=== PATIENT | female | born 1970 | race Caucasian/White ===

== ENCOUNTER 2016-11-07 13:16 | Emergency (ER) | payer BC, MEDICARE ==
[2016-11-07] MEDS ORDERED: NS 0.9% 1000 ML* 1,000 ML IV ONE (13:31)
[2016-11-07] MEDS ORDERED: fentaNYL* 50 MCG/ML 2 ML VIAL (100 MCG VIAL) IV SLOW PU ONE ×2 (13:37→16:52)
[2016-11-07 14:09] LABS: Hematocrit 39 % (35-47); Hemoglobin 12.9 g/dl (12.0-16.0); Mean Corpuscular HGB Conc 33 g/dl (31-36); Mean Corpuscular Hemoglobin 30 pg (27-31); Mean Corpuscular Volume 91 fL (80-97); Mean Platelet Volume 8 um3 (7.4-10.4); Red Blood Count 4.26 10^6/ul (4.0-5.4); Red Cell Distribution Width 14 % (10.5-15); White Blood Count 8.1 10^3/ul (3.5-10.8)
[2016-11-07 14:26] LABS: Albumin 4.4 g/dL (3.2-5.2); C Reactive Protein 2.11 mg/L (< 5.00); Calcium 9.2 mg/dL (8.6-10.3); EGFR African American 98.5 (>60); EGFR Non-African American 76.6 (>60); Globulin 3.4 g/dL (2-4); Magnesium 1.6 mg/dL (1.9-2.7); Potassium 3.7 mmol/L (3.5-5.0); Total Bilirubin 0.3 mg/dL (0.2-1.0); Total Protein 7.8 g/dL (6.4-8.9)
[2016-11-07] MEDS ORDERED: diPHENhydraMINE IV* 25 MG in NS 0.9% 50 ML* 50 ML IVPB ONE (14:27)
[2016-11-07] MEDS ORDERED: Ondansetron INJ* 2 MG/ML VIAL IV ONE (14:27)
[2016-11-07] MEDS ORDERED: diPHENhydraMINE IV* 50 MG/ML 1 ml VIAL (BENADRYL) IV ONE (14:29)
[2016-11-07 14:52] LABS: Urine Bilirubin Negative (Negative); Urine Glucose Negative (Negative); Urine Nitrite Negative (Negative)
[2016-11-07] MEDS ORDERED: Iohexol 300* (CONTRAST) 10 ML SDV IV ONE (15:39)
--- NOTE | 2016-11-07 17:02 | RAD ---
CLINICAL HISTORY: Lower left flank pain with radiation anteriorly. Relevant surgical history includes history of renal stones, nonalcoholic pancreatitis, treatment for urinary tract infection, hysterectomy, laparoscopic cholecystectomy and appendectomy. COMPARISON: Most recent comparison CT examination is dated October 25, 2015 TECHNIQUE: Contrast enhanced CT examination of the abdomen and pelvis from the lung bases through the initial tuberosities. The patient received 79 mL Omnipaque 300 intravenously prior to imaging.The patient received oral contrast as well prior to imaging. FINDINGS: VISUALIZED LUNG BASES: Bilateral breast prostheses are partially visualized. The visualized lung bases are grossly clear. There is no pleural effusion. ABDOMEN AND PELVIS: In the right lobe of the liver there is a 3.3 cm low density that exhibits peripheral enhancement characteristic of hemangioma. The liver is otherwise homogenous in attenuation. The spleen, pancreas and adrenal glands are grossly normal in appearance. The gallbladder is surgically absent. There is mild fullness of the left renal collecting system and borderline mild hydronephrosis in the right renal collecting system. There are no definite renal calculi or masses that account for this appearance. The urinary bladder measures 9.9 x 10.6 cm in the axial plane and 11.9 cm in the cephalocaudal projection. This yields an approximate urinary bladder volume of just over 1 L. The oral contrast has progressed as far as the descending colon. The small and large bowel are not distended. The appendix is not discreetly visualized consistent with the patient's surgical history. There is no gross retroperitoneal or mesenteric lymphadenopathy. The uterus is surgically absent. At the superior portion of the vagina, particularly the right fornix (axial image 77 and 99) there is a hypoattenuating area that may represent air or be some sort of foreign body. The abdominal aorta and iliac arteries are normal in course and diameter. Degenerative changes include multilevel loss of intervertebral disc height involving the lower thoracic and lumbar spine.There are no sinister bone lesions. IMPRESSION: 1. The urine filled bladder is distended measuring an approximate volume of just over 1 L and there is mild bilateral fullness of the renal collecting systems bordering on mild hydronephrosis. No obstructing calculi or other mass are visualized. Please correlate to signs and symptoms of neurogenic bladder and/or urethra outlet obstruction. 2. There is questionable identification of a foreign body in the vagina that could represent a contraceptive device such as Nuvaring. Alternatively this is simply a focus of air and is of no clinical concern. 3. Additional chronic, degenerative and iatrogenic findings described in the body of the report.
[2016-11-07] MEDS ORDERED: Magnesium Oxide TAB* 400 MG PO ONE (18:57)
[2016-11-07] MEDS ORDERED: oxyCODONE/Acetamin 5/325 MG* TAB PO ONE (19:14)
[2016-11-07] MEDS ORDERED: Ondansetron ODT TAB* 4 MG SL ONE (19:25)
--- NOTE | 2016-11-07 19:36 | ED ---
Progress - Progress Note Progress Note: Pt here w/ LUQ pain which she reports is "100% same as her pancreatitis sx". She has nausea. Her CT scan reveals a possible FB in vagina so a pelvic exam was performed. She denies abnormal vaginal d/c, odor or irritation. She is sexually active and has no concern for STD. She is s/p HEAVEN. BS+. Ab appears to be non-distended. Pelvic exam performed. Vulva is normal w/o lesions, erythema or d/c. Speculum exam is non-painful - white mucousy d/c observed - no foul odor. No erythema, no lesions, no blood nor FB observed. No cervix observed. Speculum removed and bimanual exam performed - no palpable masses, FB's, including cervix, uterus or ovaries - NTTP. There is a cavity/space palpated that is non-painful and again w/o FB. Pt tolerated procedure well. Course/Dx - Diagnoses Provider Diagnoses: Abdominal pain
--- NOTE | 2016-11-08 01:14 | CONS ---
CONSULTATION REPORT: DATE OF CONSULT: 11/07/16 REQUESTING PHYSICIAN FOR CONSULT: Dr. Penny. ATTENDING PHYSICIAN WHILE IN THE HOSPITAL: Dr. Joana Cota (report being dictated by Valentin Workman NP). REASON FOR MEDICAL CONSULTATION: Evaluation for admission. HISTORY OF PRESENT ILLNESS: Ms. Nina is a 46-year-old female patient who according to her, she has a history of fibromyalgia and in addition to this, has a history of depression, anxiety, history of narcotic usage in the past, history of chronic pancreatitis, migraines and fibromyalgia. She comes into the ER today stating that she recently was diagnosed with a UTI. She was treated. She saw Dr. Galvan in followup for this UTI. She was complaining of having abdominal discomfort there and Dr. Galvan, according to the patient, the was sent to her primary for followup of the pain. She tried getting with the primary. They were unable to get her in today. She states she has been having pain over the last day and a half in the left upper quadrant that has been sharp stabbing, worsening with food. She said she has has episodes in the past like this but she says she has not had any for sometime that she can recall. She has not had any fevers or chills. She says she feels nauseous, but she says she has not vomited. She says that she had a bowel movement this morning that was of normal caliber. There was no diarrhea. She denied having any fevers or chills. She came into the ER today. She underwent a CAT scan. I was concerned because the discomfort was not going away and we were asked to evaluate for admission. PAST MEDICAL HISTORY: Significant for: 1. Depression. 2. Anxiety. 3. Narcotic abuse in the past. 4. Chronic pancreatitis. 5. Fibromyalgia. 6. Migraines. PAST SURGICAL HISTORY: 1. She has had 3 C-sections. 2. Hysterectomy. 3. Breast surgery. HOME MEDICATIONS: According to the patient recall include: 1. Zoloft 200 mg daily. 2. Estradiol 0.1 mg daily. 3. Neurontin 600 mg p.o. t.i.d. 4. Ritalin 20 mg p.o. b.i.d. as needed. 5. Trazodone 200 mg daily. 6. Ativan 2 mg t.i.d. as needed. ALLERGIES TO MEDICATIONS: Include COMPAZINE, MORPHINE, TRIPTAN, and TORADOL. FAMILY HISTORY: Mother had a history of breast cancer. Father had a history of MD and colon cancer. SOCIAL HISTORY: She does not smoke. She does not drink. Surrogate decision maker is her ex- and boyfriend. REVIEW OF SYSTEMS: There is no documented fever. She denied having any significant weight change. There was no double vision. There is no ear discharge. She denies having any rhinorrhea. There is no sore throat. No thyroid enlargement. Denied having any chest pain. There was no orthopnea, no nocturnal dyspnea. There is abdominal pain from my HPI. There was no nausea, no vomiting. No dysuria, no frequency. No seizure, no loss of consciousness. No pruritus, no skin ulceration. Review of 14 systems completed and all others negative. PHYSICAL EXAM: Vital signs: Blood pressure 112/79, pulse 73, respirations 21, O2 sat 100%, temperature 98.7. General: At this time, Ms. Nina is a 46-year- old female patient. She is sitting in the ER stretcher. She does not appear to be in any acute distress. HEENT: Head is atraumatic, normocephalic. Eyes: EOMs are intact. Sclerae anicteric and not pale. Neck: Supple. Throat: Oral mucosa appears to be moist. No oropharyngeal erythema. Lungs are clear to auscultation bilaterally. No wheezes, rales or rhonchi. Abdomen was soft, it was flat. She does illicit tenderness in the left upper quadrant. She says it hurts when you touch there. There is no guarding or rebound tenderness. Extremities: Pulses are 2+ throughout. She is able to move all 4 extremities with 5/5 strength. Neurologically, the patient is awake, alert, oriented x3. Tongue midline. Alignment Mechanic were equal. No gross focal deficits. Skin is grossly intact. DIAGNOSTIC STUDIES/LAB DATA: The labs today revealed WBC of 8.1, RBC of 4.26, hemoglobin of 12.9, hematocrit of 39, platelet count of 316. PTT was 25.6. Sodium was 133, potassium 3.7, chloride 97, bicarb 25, BUN 24, creatinine 0.80, glucose 85, lactic 1, calcium 9.2, mag 1.6. Total bili 0.30. AST 18, ALT 10, alk phos 42, ammonia 45, albumin 4.4, lipase 60, amylase 63. Urine was negative. He had an abdominal pelvis CT, which showed bladder is filled and distended measuring an approximate volume of just over 1 liter and there is mild bilateral fullness and renal collecting system is bordering on mild hydronephrosis. No obstructing calculi or mass visualized. Please correlate with signs and symptoms of neurogenic bladder and/or urethral obstruction. Of note, she did urinate down here in the ER. They bladder scanned her and her bladder scan was less than 400. For impression, there is questionable identification of foreign body in the vagina that could represent a contraception device it could be simple focus of air. There is no clinical concern. The patient did undergo a vaginal pelvic exam which no foreign body was identified. Additional chronic and degenerative and androgenic findings described in the body of the report. She had an EKG, which showed normal sinus rhythm at 65. No ST elevation or T-wave inversions. Old medical records reviewed. I did review the records from . I did review the records from [facility]. ASSESSMENT AND PLAN: Ms. Nina is a 46-year-old female patient coming into the ER today with complaints of abdominal pain of unclear etiology. At this point, it appears that she does not have any obvious reason for admission. White count is stable. She has no fevers. She is not vomiting here. I have instructed to try to push p.o. fluids and my plan here is to do a p.o. challenge issue. If she fails, then obviously I think she needs to be admitted for intractable nausea and vomiting. She underwent an MRI within the year. The pancreas was unremarkable at that point. There is a question of this chronic pancreatitis. I feel that if she can take p.o. fluids, keep them down she could be safely discharged with a close followup with Dr. Ziegler. Dr. Penny did call the on-call for Dr. Ziegler's office who felt that this was also an advisable plan. However, we were asked to evaluate as well. The patient at this point says that she still has some pain. She is reluctant to try the p.o. meds. I reassured her that if she does vomit then, obviously I will keep her and will hydrate her. I would recommend trying p.o. medications. I would recommend close followup with Dr. Ziegler. I did discuss this with my attending , Dr. Cota, who was in agreement and I would continue her home medications as prescribed and send her home on a small course of p.o. narcotics to follow up with Dr. Alarcon in [place]. TIME SPENT: Time spent on the consult was approximately 60 minutes, greater than half time spent [id number] with the patient obtaining my history and physical, the other half of the time spent going over the plan of care with the patient and implementing the plan of care. I did discuss the plan of care with ay attending Dr. Cota; she is in agreement. VALENTIN WORKMAN NP [id number]/CPS #: [id number] MTDD
[2016-11-08 01:36] VITALS: BP 110/78
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
== END 2016-11-07 22:00 | disposition home or self-care (01) ==
LOC: ED 13:16
DX: R10.12 Left upper quadrant pain (principal); M79.7 Fibromyalgia; K85.90 Acute pancreatitis without necrosis or infection, unspecified; F32.9 Major depressive disorder, single episode, unspecified; F41.9 Anxiety disorder, unspecified
CPT/HCPCS: 36415; 74177; 80053; 81003; 82140; 82150; 83605; 83690; 83735; 85025; 85730; 86140; 93005; 99282; A9270-GY; J1200; J2405; J3010; Q9967

== ENCOUNTER 2017-08-09 15:28 | Emergency (ER) | payer BC ==
[2017-08-09] MEDS ORDERED: NS 0.9% 1000 ML* 1,000 ML IV ONE (15:36)
--- NOTE | 2017-08-09 16:19 | RAD ---
INDICATION: Left-sided abdominal pain. Request for evaluation COMPARISON: CT April 14, 2017 TECHNIQUE: Limited transabdominal imaging of the left upper quadrant was performed to evaluate the spleen and left kidney FINDINGS: The left kidney is normal in size and echogenicity measuring 10.5 x 5.5 x 4.8 cm. No hydronephrosis, masses, or calculi are seen. The spleen measures 9.7 x 3.1 x 2.9 cm. There is no focal mass. There is no free fluid in the left upper quadrant IMPRESSION: NORMAL LEFT KIDNEY AND SPLEEN
[2017-08-09 16:27] LABS: Urine Appearance Clear; Urine Blood 3+ (Negative); Urine Color Yellow; Urine Ketones Negative (Negative); Urine Protein Negative (Negative); Urine Urobilinogen Negative (Negative)
[2017-08-09 17:06] LABS: ABS Basophils 0.1 10^3/ul (0-0.2); ABS Eosinophils 0.2 10^3/ul (0-0.6); ABS Lymphocytes 1.5 10^3/ul (1.0-4.8); ABS Monocytes 0.5 10^3/ul (0-0.8); ABS Neutrophils 4.9 10^3/ul (1.5-7.7); ABS Nucleated RBC 0 10^3/ul; Eosinophil % 3.2 % (0-6); Hematocrit 39 % (35-47); Hemoglobin 13.1 g/dl (12.0-16.0); Lymphocyte % 21.4 % (25-47); Mean Corpuscular HGB Conc 34 g/dl (31-36); Mean Corpuscular Hemoglobin 31 pg (27-31); Mean Corpuscular Volume 91 fL (80-97); Mean Platelet Volume 7 um3 (7.4-10.4); Nucleated Red Blood Cells % 0; Platelet Count 264 10^3/ul (150-450); Red Blood Count 4.28 10^6/ul (4.0-5.4); Red Cell Distribution Width 13 % (10.5-15); White Blood Count 7.1 10^3/ul (3.5-10.8)
[2017-08-09] MEDS ORDERED: Ondansetron INJ* 2 MG/ML VIAL ONE (17:08)
[2017-08-09] MEDS ORDERED: Ondansetron INJ* 2 MG/ML VIAL IV ONE (17:09)
[2017-08-09 17:17] LABS: EGFR Non-African American 64.1 (>60)
[2017-08-09] MEDS ORDERED: Meperidine SYRINGE* 50 MG/ML IV ONE (17:25)
[2017-08-09] MEDS ORDERED: diPHENhydraMINE IV* 50 MG/ML 1 ml VIAL (BENADRYL) IV ONE (17:26)
--- NOTE | 2017-08-09 17:51 | RAD ---
INDICATION: Left flank pain COMPARISON: None TECHNIQUE: A single view of the abdomen is submitted. FINDINGS: Bones: There are no acute bony findings. Soft tissues: The soft tissues appear normal. The psoas margins are sharp. Bowel gas pattern: Normal there is moderate retained stool, her. Calcifications: There are no abnormal calcifications. Other: None IMPRESSION: MODERATE RETAINED STOOL. NO ABNORMAL CALCIFICATIONS.
[2017-08-09] MEDS ORDERED: oxyCODONE/Acetamin 5/325 MG* TAB PO ONE (18:45)
[2017-08-09] MEDS ORDERED: HYDROcodone/ACETAMIN 5-325 MG* 1 TAB PO ONE (19:32)
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
[2017-08-09 20:21] VITALS: BP 91/64
--- NOTE | 2017-08-12 09:18 | ED ---
Progress - Progress Note Progress Note: Patient presented to ED 3 days ago with abdominal pain and left-sided pain. She was assessed for bowel obstruction as well as a kidney stone. Although her ultrasound does not reveal hydronephrosis, her U/A revealed hematuria and patient is not on her period (hasn't had one in years). She reports she's tried 2 fleets enema and taking milk of magnesium at home- has scant runny brown liquid stool only as a result. Still has abdominal discomfort with dyspepsia and has not had a quality bowel movement since leaving the ED. She is still able to eat and drink however it can be uncomfortable at times. She has a follow-up with her PCP next week. No daniel fever or chills however she just doesn't feel well in general. Denies dysuria, urinary frequency, flank pain. Based on these findings suspect patient either passed a kidney stone or may have a UTI secondary to her constipation. Preliminary urinary results reveal Staphylococcus Legdenensis.Will start antibiotic once final sensitivities returned. Patient aware to return to emergency department if symptoms worsen. Re-Evaluation - Re-Evaluation First Eval Re-Evaluation Time: 19:25 - Still with pain. Requests more pain med. Change: Unchanged Second Eval Re-Evaluation Time: 20:00 - vicodin helped the pain. Pt is agreeable to discharge. Ambulatory without assistance at [place]. Change: Improved Course/Dx - Course Course Of Treatment: ED physician discussed US results with the pt. INITIALLY SENT RX FOR PERCOCET 1 PO Q 6 #12 TO [facility]. AT 1934PM [facility] WAS CLOSED. PT DOES NOT WANT THE PERCOCET BECAUSE IT GIVES HER NIGHTMARES. I CALLED THE [facility] AND LEFT A MESSAGE TO CANCEL THE PERCOCET. VICODIN WAS RX'D - Diagnoses Provider Diagnoses: Flank pain
== END 2017-08-09 20:23 | disposition home or self-care (01) ==
LOC: ED 15:28
DX: R10.32 Left lower quadrant pain (principal); R10.13 Epigastric pain; Z87.442 Personal history of urinary calculi; Z87.891 Personal history of nicotine dependence; Z88.5 Allergy status to narcotic agent; Z88.8 Allergy status to other drugs, medicaments and biological substances
CPT/HCPCS: 36415; 74018; 76705; 80053; 81003; 81015; 82150; 83605; 83690; 85025; 86140; 87077; 87086; 87186; 96361; 96374; 96375; 99283; A9270-GY; J1200; J2175; J2405

== ENCOUNTER 2017-12-23 19:21 | Emergency (ER) | payer BC, MEDICARE ==
[2017-12-23] MEDS ORDERED: Ondansetron INJ* 2 MG/ML VIAL IV ONE (22:02)
[2017-12-23] MEDS ORDERED: NS 0.9% 1000 ML* 1,000 ML IV ONE (22:02)
[2017-12-23] MEDS ORDERED: HYDROmorphone INJ* 0.5 MG/0.5 ML SYRINGE IV SLOW PU ONE (22:05)
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
[2017-12-23] MEDS ORDERED: HYDROmorphone INJ* 1 MG/ML CARPUJECT SYRINGE ONE (22:24)
[2017-12-23 22:40] LABS: ABS Basophils 0.1 10^3/ul (0-0.2); ABS Eosinophils 0.2 10^3/ul (0-0.6); ABS Lymphocytes 2.2 10^3/ul (1.0-4.8); ABS Monocytes 0.5 10^3/ul (0-0.8); ABS Neutrophils 4.6 10^3/ul (1.5-7.7); ABS Nucleated RBC 0 10^3/ul; Eosinophil % 2.7 % (0-6); Hematocrit 36 % (35-47); Hemoglobin 12.1 g/dl (12.0-16.0); Lymphocyte % 29.4 % (25-47); Mean Corpuscular HGB Conc 34 g/dl (31-36); Mean Corpuscular Hemoglobin 31 pg (27-31); Mean Corpuscular Volume 90 fL (80-97); Mean Platelet Volume 6.4 um3 (7.4-10.4); Nucleated Red Blood Cells % 0; Platelet Count 388 10^3/ul (150-450); Red Blood Count 3.97 10^6/ul (4.00-5.40); Red Cell Distribution Width 13 % (10.5-15); White Blood Count 7.5 10^3/ul (3.5-10.8)
[2017-12-23 22:57] LABS: EGFR Non-African American 83.4 (>60)
[2017-12-23] MEDS ORDERED: diPHENhydraMINE IV* 50 MG/ML 1 ml VIAL (BENADRYL) IV ONE (23:04)
[2017-12-23] MEDS ORDERED: diPHENhydraMINE IV* 50 MG/ML 1 ml VIAL (BENADRYL) ONE (23:05)
[2017-12-23 23:46] LABS: Urine Appearance Cloudy; Urine Blood Negative (Negative); Urine Color Yellow; Urine Ketones Negative (Negative); Urine Protein Negative (Negative); Urine Specific Gravity 1.009 (1.010-1.030); Urine Urobilinogen Negative (Negative)
[2017-12-24] MEDS ORDERED: Ondansetron ODT TAB* 4 MG PO ONE (00:13)
[2017-12-24 00:53] VITALS: BP 94/63
--- NOTE | 2017-12-24 07:42 | RAD ---
INDICATION: Left flank abdominal pain. COMPARISON: Comparison is made with a prior CT of the abdomen and pelvis from April 14, 2017. Correlation is also made with a prior study from April 06, 2014. TECHNIQUE: A CT scan of the abdomen and pelvis was performed without intravenous and without oral contrast. Contiguous axial sections were obtained from the lung bases through the symphysis pubis. Images were reconstructed in the coronal and sagittal planes. FINDINGS: The lung bases are clear. No pleural effusion is present. The liver and spleen are normal in size. There is a hypodense lesion present in the posterior aspect of the liver adjacent to the confluence of the hepatic veins measuring 3.4 x 2.9 cm in size. This is unchanged from the prior studies and appear to represent a hemangioma on the prior contrast enhanced study from 2013. The patient is status post cholecystectomy. There is prominence of the extrahepatic ducts which appears similar to 2014 study likely representing postcholecystectomy changes. The pancreas appears grossly within normal limits on this noncontrast study. The adrenal glands and kidneys are normal in size. There is a 1 mm calculus in the upper pole of the right kidney. There is no evidence for hydronephrosis. No bladder calculi are seen. The aorta is normal in caliber without significant calcific plaque. No significant enlarged retroperitoneal lymph nodes are seen. The stomach, small and large bowel appear nondistended. The patient is status post appendectomy by history. There is a moderate to large amount retained stool. There is no evidence for diverticulitis or colitis. The patient is status post hysterectomy. No free intraperitoneal air or fluid is seen. No significant focal osseous abnormality is seen. IMPRESSION: 1. NO EVIDENCE FOR ACUTE FINDING OR CAUSE FOR THE PATIENT'S ABDOMINAL PAIN IS SEEN. 2. SMALL NONOBSTRUCTING PUNCTATE RIGHT RENAL CALCULUS. 3. STATUS POST CHOLECYSTECTOMY AND HYSTERECTOMY. 3. STABLE HEPATIC LESION. 4. MODERATE TO LARGE AMOUNT RETAINED STOOL.
== END 2017-12-24 01:09 | disposition home or self-care (01) ==
LOC: ED 19:21
DX: R10.84 Generalized abdominal pain (principal); R11.0 Nausea
CPT/HCPCS: 36415; 74176; 80053; 81003; 82150; 83690; 85025; 96374; 96375; 99283; A9270-GY; J1170; J1200; J2405

== ENCOUNTER → 2018-04-22 10:53 | Emergency (ER) | payer BC, MEDICARE ==
[~2018-04-22 10:53] MED LIST: Acetaminophen TAB* 325 MG PO ONE; LORazepam INJ* 2 MG/ML 1 ML VIAL IV PUSH ONE; Metoclopramide IV* 5 MG/ML 2 ML VIAL IV ONE; Promethazine INJ(RESTRICTED)* 25 MG/ML 1 ML VIAL IV ONE; diPHENhydraMINE IV* 50 MG/ML 1 ml VIAL (BENADRYL) IV ONE; oxyCODONE TAB* 5 MG TAB PO ONE
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
[2018-04-22 11:30] LABS: ABS Basophils 0.1 10^3/ul (0-0.2); ABS Eosinophils 0.3 10^3/ul (0-0.6); ABS Lymphocytes 2.3 10^3/ul (1.0-4.8); ABS Monocytes 0.4 10^3/ul (0-0.8); ABS Neutrophils 3.3 10^3/ul (1.5-7.7); ABS Nucleated RBC 0 10^3/ul; Eosinophil % 4.1 % (0-6); Hematocrit 38 % (35-47); Hemoglobin 12.7 g/dl (12.0-16.0); Lymphocyte % 36.7 % (25-47); Mean Corpuscular HGB Conc 34 g/dl (31-36); Mean Corpuscular Hemoglobin 31 pg (27-31); Mean Corpuscular Volume 91 fL (80-97); Nucleated Red Blood Cells % 0.1; Platelet Count 332 10^3/ul (150-450); Red Blood Count 4.17 10^6/ul (4.00-5.40); Red Cell Distribution Width 13 % (10.5-15); White Blood Count 6.3 10^3/ul (3.5-10.8)
[2018-04-22 12:02] LABS: EGFR Non-African American 72.8 (>60)
[2018-04-22 16:22] VITALS: BP 102/64
--- NOTE | 2018-04-22 19:21 | EEG ---
ELECTROENCEPHALOGRAPHY: DATE OF STUDY: 04/22/18 - EMERGENCY DEPT PATIENT OF: Dr. Lala and Dr. Aviles. CLINICAL PROBLEM: This is a 48-year-old woman being evaluated for frequent spells that began today and occurred throughout this tracing. REPORT: She had several during the tracing where she would have some tonic posturing as well as nonrhythmic tremoring. At one point, she could talk despite some generalized abnormalities of tone and movement. Throughout this and during episodes, her background consisted of diffuse alpha and beta range frequencies. There were no epileptiform potentials or focal abnormalities or major asymmetries of background. At times, there was muscle artifact, but back- ground was clearly discernible through most of this tracing. CLINICAL IMPRESSION: This awake EEG is within normal limits including during clinical episodes as described above. MEDICATIONS: None listed, lorazepam is going to be given to this woman, but it was not given during this tracing. [id number]/[facility] #: [id number] [facility]
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
== END | disposition home or self-care (01) ==
LOC: ED 10:53
DX: F44.5 Conversion disorder with seizures or convulsions (principal); G43.909 Migraine, unspecified, not intractable, without status migrainosus; F41.9 Anxiety disorder, unspecified; F32.9 Major depressive disorder, single episode, unspecified; Z88.5 Allergy status to narcotic agent; Z88.8 Allergy status to other drugs, medicaments and biological substances; Z82.49 Family history of ischemic heart disease and other diseases of the circulatory system
CPT/HCPCS: 36415; 70450; 80053; 80320; 80329; 83605; 84484; 85025; 93005; 95816; 96374; 99284; A9270-GY; G0480; J2060; J2550; J2765

== ENCOUNTER 2018-07-22 10:42 | Emergency (ER) | payer BC, MEDICARE ==
[2018-07-22] MEDS ORDERED: Ondansetron ODT TAB* 4 MG SL ONE (11:24)
[2018-07-22] MEDS ORDERED: Acetaminophen TAB* 325 MG PO ONE (12:36)
[2018-07-22] MEDS ORDERED: Acetaminophen TAB* 325 MG ONE (12:38)
[2018-07-22] MEDS ORDERED: NS 0.9% 1000 ML** 1,000 ML IV ONE (13:05)
[2018-07-22] MEDS ORDERED: diPHENhydraMINE IV* 50 MG/ML 1 ml VIAL (BENADRYL) IV ONE (13:07)
[2018-07-22] MEDS ORDERED: Metoclopramide IV* 5 MG/ML 2 ML VIAL IV ONE (13:07)
[2018-07-22] MEDS ORDERED: hydrOXYzine SYRUP* 50 MG/25 ML UDC (2 MG/ML) PO ONE (13:13)
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
[2018-07-22] MEDS ORDERED: HYDROXYZINE HCL 10 MG/5 ML PO ONE (14:00)
[2018-07-22 14:01] LABS: ALT 11 U/L (7-52); Albumin 4.2 g/dL (3.2-5.2); Albumin/Globulin Ratio 1.5 (1-3); Alkaline Phosphatase 56 U/L (34-104); BUN/Creatinine Ratio 19.3 (8-20); Blood Urea Nitrogen 17 mg/dL (6-24); CO2 Carbon Dioxide 23 mmol/L (22-32); Calcium 8.8 mg/dL (8.6-10.3); Chloride 106 mmol/L (101-111); EGFR African American 82.3 (>60); Globulin 2.8 g/dL (2-4); Glucose 85 mg/dL (70-100); Sodium 136 mmol/L (135-145)
[2018-07-22 14:02] LABS: ABS Basophils 0.1 10^3/ul (0-0.2); ABS Eosinophils 0.2 10^3/ul (0-0.6); ABS Lymphocytes 2.1 10^3/ul (1.0-4.8); ABS Monocytes 0.5 10^3/ul (0-0.8); ABS Neutrophils 4.7 10^3/ul (1.5-7.7); ABS Nucleated RBC 0 10^3/ul; Eosinophil % 2.4 %; Hematocrit 39 % (35-47); Hemoglobin 12.9 g/dl (12.0-16.0); Lymphocyte % 27.3 %; Mean Corpuscular HGB Conc 34 g/dl (31-36); Mean Corpuscular Hemoglobin 31 pg (27-31); Mean Corpuscular Volume 92 fL (80-97); Mean Platelet Volume 7.3 fL (7.4-10.4); Nucleated Red Blood Cells % 0; Platelet Count 274 10^3/ul (150-450); Red Blood Count 4.21 10^6/ul (4.00-5.40); Red Cell Distribution Width 13 % (10.5-15); White Blood Count 7.6 10^3/ul (3.5-10.8)
[2018-07-22 14:36] LABS: Influenza A Molecular NEGATIVE (Negative); Influenza B Molecular NEGATIVE (Negative)
[2018-07-22 15:09] LABS: Anion Gap 7 mmol/L (2-11)
[2018-07-22] MEDS ORDERED: Butalb/Acetamin/Caff TAB* 1 TAB PO ONE (15:21)
[2018-07-22] MEDS ORDERED: Fluticasone NASAL SPRAY 50MCG* 16 gm SPRAY BTL BOTH NARES ONE (16:41)
[2018-07-22 17:20] VITALS: BP 97/67
== END 2018-07-22 17:19 | disposition home or self-care (01) ==
LOC: ED 10:42
DX: B34.9 Viral infection, unspecified (principal); R53.1 Weakness; R05 Cough; R51 Headache; R50.9 Fever, unspecified; J02.9 Acute pharyngitis, unspecified; Z88.6 Allergy status to analgesic agent
CPT/HCPCS: 36415; 80053; 83605; 85025; 86140; 96361; 96374; 96375; 99282; A9270-GY; J2765

== ENCOUNTER 2018-08-01 16:02 | Emergency (ER) | payer BC, MEDICARE ==
[2018-08-01] MEDS ORDERED: Ondansetron INJ* 2 MG/ML VIAL IV ONE (16:29)
[2018-08-01] MEDS ORDERED: fentaNYL* 50 MCG/ML 2 ML VIAL (100 MCG VIAL) IV SLOW PU ONE (16:29)
[2018-08-01] MEDS ORDERED: NS 0.9% 1000 ML** 1,000 ML IV ONE (16:29)
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
[2018-08-01] MEDS ORDERED: Ondansetron ODT TAB* 4 MG ONE (17:22)
[2018-08-01] MEDS ORDERED: diPHENhydraMINE PO* 25 MG PO ONE (18:34)
[2018-08-01] MEDS ORDERED: diPHENhydraMINE IV* 50 MG/ML 1 ml VIAL (BENADRYL) SLOW PUSH ONE (18:41)
[2018-08-01 18:42] LABS: Activated Partial Thrombo Time 22.6 seconds (26.0-36.3); INR 0.93 (0.77-1.02)
[2018-08-01 18:51] LABS: Hematocrit 36 % (35-47); Hemoglobin 12.1 g/dl (12.0-16.0); Mean Corpuscular HGB Conc 34 g/dl (31-36); Mean Corpuscular Hemoglobin 30 pg (27-31); Mean Corpuscular Volume 91 fL (80-97); Red Blood Count 3.99 10^6/ul (4.00-5.40); Red Cell Distribution Width 13 % (10.5-15); White Blood Count 7.9 10^3/ul (3.5-10.8)
[2018-08-01 18:52] LABS: Albumin 3.9 g/dL (3.2-5.2); Albumin/Globulin Ratio 1.5 (1-3); BUN/Creatinine Ratio 25.4 (8-20); C Reactive Protein 1.06 mg/L (<8.01); Calcium 8.6 mg/dL (8.6-10.3); EGFR African American 105.4 (>60); EGFR Non-African American 87.1 (>60); Globulin 2.6 g/dL (2-4); Magnesium 1.9 mg/dL (1.9-2.7); Potassium 3.7 mmol/L (3.5-5.0); Total Bilirubin 0.2 mg/dL (0.2-1.0); Total Protein 6.5 g/dL (6.4-8.9)
--- NOTE | 2018-08-01 19:03 | ED ---
Progress - Progress Note Progress Note: Received pt sign out from Dr. Pinedo awaiting CT abd/pel. CT abd/pel reveals no acute pathology. Pt will be discharged home with diagnosis of gastritis. Pt is agreeable with this plan. - EKG/XRAY/CT CT: CT abd/pel shows no acute pathology. ED Physician reviewed this report. Course/Dx - Course Course Of Treatment: Received pt sign out from Dr. Pinedo awaiting CT abd/pel. CT abd/pel reveals no acute pathology. Pt will be discharged home with diagnosis of gastritis. Pt is agreeable with this plan. - Diagnoses Provider Diagnoses: Gastritis Discharge - Sign-Out/Discharge Documenting (check all that apply): Patient Departure - Discharge Receiving patient FROM: Martina Pinedo Patient Received Moderate/Deep Sedation with Procedure: No - Discharge Plan Condition: Stable Disposition: HOME Prescriptions: Omeprazole CAP (NF) [Prilosec CAP* 20 MG] 20 mg PO DAILY #30 cap. Ondansetron ODT TAB* [Zofran 4 MG Odt TAB*] 8 mg PO Q6H PRN #14 tab.odt PRN Reason: Nausea oxyCODONE/Acetamin 5/325 MG* [Percocet 5/325 TAB*] 1 tab PO Q4H PRN #8 tab MDD 4 tabs PRN Reason: Pain Patient Education Materials: Peptic Ulcer (ED), Gastritis (ED) Referrals: Ivon Genao [Primary Care Provider] - 3 Days Additional Instructions: Your blood work and CT scan did not show anything that would explain your pain, but certainly stomach problems like gastritis and peptic ulcer disease can cause significant pain and would not necessarily show up on these tests. You should check with your PCP on Saturday for a referral to a manager of housekeeping, but in the meantime I am prescribing medication that will treat that condition. - Billing Disposition and Condition Condition: STABLE Disposition: Home - Attestation Statements Document Initiated by Pawel: Yes Documenting Scribe: Phong Castillo Provider For Whom Pawel is Documenting (Include Credential): Dr. Baldev Lala MD Scribe Attestation: Phong Sethi scribed for Dr. Baldev Lala MD on 08/05/18 at 1420. Scribe Documentation Reviewed: Yes Provider Attestation: The documentation as recorded by the scribe, Phong Castillo accurately reflects the service I personally performed and the decisions made by me, Dr. Baldev Lala MD Status of Scribe Document: Viewed
[2018-08-01] MEDS ORDERED: Iohexol 300* (CONTRAST) 10 ML SDV IV ONE (19:07)
[2018-08-01 19:29] LABS: ABS Basophils 0.1 10^3/ul (0-0.2); ABS Eosinophils 0.1 10^3/ul (0-0.6); ABS Lymphocytes 2.7 10^3/ul (1.0-4.8); ABS Monocytes 0.4 10^3/ul (0-0.8); ABS Neutrophils 4.6 10^3/ul (1.5-7.7); ABS Nucleated RBC 0 10^3/ul; Eosinophil % 1.5 %; Lymphocyte % 34.2 %; Nucleated Red Blood Cells % 0.3
[2018-08-01] MEDS ORDERED: Ondansetron ODT TAB* 4 MG SL ONE (21:03)
[2018-08-01] MEDS ORDERED: Lidocaine 2% VISCOUS* 15 ML UDC PO ONE (21:03)
[2018-08-01] MEDS ORDERED: Morphine VIAL* 4 MG/ML VIAL (1 ml vial) IM ONE (21:03)
[2018-08-01] MEDS ORDERED: Al Hydrox/Mg Hydrox/Simet LIQ* 30 ML UDC PO ONE (21:03)
[2018-08-01] MEDS ORDERED: oxyCODONE/Acetamin 5/325 MG* TAB PO ONE (22:36)
[2018-08-02 00:12] VITALS: BP 105/71
== END 2018-08-02 00:10 | disposition home or self-care (01) ==
LOC: ED 16:02
DX: K29.70 Gastritis, unspecified, without bleeding (principal); R11.2 Nausea with vomiting, unspecified; Z88.6 Allergy status to analgesic agent; R10.9 Unspecified abdominal pain
CPT/HCPCS: 36415; 74177; 80053; 82140; 82150; 83605; 83690; 83735; 84484; 85025; 85610; 85730; 86140; 87040; 93005; 96361; 96372; 96374; 96375; 99284; A9270-GY; J1200; J2270; J2405; J3010; Q9967

== ENCOUNTER 2019-04-15 20:38 | Inpatient (IN) | payer BC, MEDICARE ==
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
[2019-04-15] MEDS ORDERED: Ondansetron INJ* 2 MG/ML VIAL IV ONE (21:14)
[2019-04-15] MEDS ORDERED: NS 0.9% 1000 ML** 1,000 ML IV ONE (21:14)
[2019-04-15 21:41] LABS: ABS Eosinophils 0.1 10^3/ul (0-0.6); ABS Monocytes 0.5 10^3/ul (0-0.8); ABS Neutrophils 3.9 10^3/ul (1.5-7.7); Eosinophil % 1.5 %; Hematocrit 36 % (35-47); Hemoglobin 12.2 g/dL (12.0-16.0); Mean Corpuscular HGB Conc 34 g/dL (31-36); Mean Corpuscular Hemoglobin 31 pg (27-31); Mean Corpuscular Volume 91 fL (80-97); Platelet Count 317 10^3/uL (150-450); Red Blood Count 3.91 10^6 /uL (3.70-4.87); Red Cell Distribution Width 13 % (10-15); White Blood Count 6.6 10^3/uL (3.5-10.8)
[2019-04-15 21:58] LABS: Albumin 4.3 g/dL (3.2-5.2); Albumin/Globulin Ratio 1.8 (1-3); BUN/Creatinine Ratio 17.1 (8-20); C Reactive Protein 1.03 mg/L (<8.01); EGFR African American 88.9 (>60); EGFR Non-African American 73.5 (>60); Globulin 2.4 g/dL (2-4); Potassium 3.6 mmol/L (3.5-5.0); Total Bilirubin 0.4 mg/dL (0.2-1.0); Total Protein 6.7 g/dL (6.4-8.9)
[2019-04-15] MEDS ORDERED: diPHENhydraMINE IV* 50 MG/ML 1 ml VIAL (BENADRYL) IV ONE (21:58)
[2019-04-15] MEDS ORDERED: HYDROmorphone INJ* 0.5 MG/0.5 ML SYRINGE IV ONE (21:58)
[2019-04-15] MEDS ORDERED: Pantoprazole IV* 40 MG IV ONE (22:05)
[2019-04-16] MEDS ORDERED: Ondansetron INJ* 2 MG/ML VIAL IV ONE (01:14)
[2019-04-16] MEDS ORDERED: NS 0.9% 1000 ML** 1,000 ML IV SCH (02:30)
[2019-04-16 03:05] LABS: Urine Appearance Cloudy; Urine Bilirubin Negative (Negative); Urine Blood Negative (Negative); Urine Color Yellow; Urine Glucose Negative (Negative); Urine Ketones Negative (Negative); Urine Nitrite Negative (Negative); Urine Protein Negative (Negative); Urine Specific Gravity 1.012 (1.010-1.030); Urine Urobilinogen Negative (Negative)
[2019-04-16] MEDS: diPHENhydraMINE IV* 50 MG/ML 1 ml VIAL (BENADRYL) IV PRN ×5 (03:40→22:44)
[2019-04-16] MEDS: HYDROmorphone INJ* 0.5 MG/0.5 ML SYRINGE IV PRN ×5 (03:45→22:44)
[2019-04-16] MEDS: LORazepam TAB(*) 1 MG PO PRN ×3 (04:48→21:13)
--- NOTE | 2019-04-16 05:22 | HP ---
CC: BEL Ramirez * HISTORY AND PHYSICAL: DATE OF ADMISSION: 04/16/19 PRIMARY CARE PROVIDER: BEL Ramirez CHIEF COMPLAINT: Abdominal pain and nausea. HISTORY OF PRESENT ILLNESS: Ms. Nina is a 49-year-old female who has a history of anxiety, past renal calculi, and chronic pancreatitis, who began to develop severe abdominal pain around 03/23/19. She states that she went to saw her PCP at the [place] office for the abdominal pain. It was recommended that she undergo a CT scan of the abdomen and pelvis; therefore, she was sent from the PCP office to [facility], where she underwent CT scan of the abdomen and pelvis. She was found to have fluid filled proximal colon with fluid stool distally. No small bowel obstruction was identified. Normal appendix was seen. There was bilateral hydronephrosis and hydroureter without ureteral or bladder calculus identified. A 3.9 cm right hepatic mass typically in appearance for hemangioma was seen and her pancreas was felt to be unremarkable. She was hospitalized and ultimately discharged home without any clear diagnosis. She did think she was constipated and therefore she was given an enema before leaving and she states that following that she had significant diarrhea for several days. She continued to have nausea, vomiting, abdominal pain, after being discharged from [place]. On 04/07/19, the patient went back to the PCP office in [place] and unfortunately her PCP had to leave for the afternoon and she was sent to [place] for evaluation. She again underwent CT scan this time. CT scan showed approximately 4 x 4 x 3.2 cm hypoattenuating region in segment 6 of the liver with subtle peripheral nodular enhancement compatible with hemangioma. An abrupt caliber change in the second part of the duodenum as it passes under the SMA with acute angle branch point from the aorta and in the correct clinical setting this may represent SMA syndrome. Recommend clinical correlation. Otherwise, no evidence for small bowel obstruction. There is a short segment lesion of colonic wall thickening in the mid descending colon, this was likely due to partially collapsed state and lack of stool. She was hospitalized overnight and states that on 04/08/19 she was told that the hospital was full and that she needed to be discharged and was discharged to home. The patient again continued to have symptoms. On 04/13/19 , the patient saw the PA at the [facility]. At that point, the plan was to get EGD and colonoscopy in the near future. On 04/15/19 , the patient had driven up to [place] to run some errands. On the way back home , she again developed severe epigastric pain and began vomiting. 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 She got home from her trip and states that she was unable to keep anything down. She felt very lousy lying in bed and therefore presented to the emergency room. The patient states that the abdominal pain is in the epigastric region. She does feel that she is distended. She states that the pain is constant, however , the intensity waxes and wanes. Intermittently, she has sharp stabbing pain radiating straight through to her back. She has had no fevers or chills. She states that she has lost approximately 9 pounds since 03/23/19. She claims that she is unable to keep anything down. She does state that her bowel movements turned normal and her last bowel movement was on the morning of . PAST MEDICAL HISTORY: 1. Anxiety. 2. Renal calculi. 3. Chronic pancreatitis. 4. Fibromyalgia. PAST SURGICAL HISTORY: 1. x3. 2. HEAVEN-BSO. 3. Cholecystectomy. 4. Tonsillectomy. 5. Breast reduction with breast implant. MEDICATIONS: 1. Progesterone 200 mg p.o. q.h.s. 2. Sertraline 200 mg p.o. daily. 3. Omeprazole 20 mg p.o. daily. 4. Ritalin 20 mg p.o. b.i.d. 5. Soma 350 mg p.o. t.i.d. p.r.n. spasm. 6. Ferrous sulfate 325 mg p.o. daily. 7. Colace 100 mg p.o. b.i.d. 8. Estradiol 1 mg p.o. daily. 9. Gabapentin 600 mg p.o. b.i.d. 10. Ativan 2 mg p.o. t.i.d. p.r.n. anxiety. The patient states she typically takes 4 mg at bedtime. 11. Trazodone 200 mg p.o. q.h.s. ALLERGIES: MORPHINE, COMPAZINE, TORADOL, PO BENADRYL, AND PERCOCET. FAMILY HISTORY: Dad had AK and colon cancer. Mom had breast cancer. SOCIAL HISTORY: The patient does not smoke. She does not drink alcohol. 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 REVIEW OF SYSTEMS: A complete 11-system review of systems is obtained. Pertinent positives and negatives are as per HPI and otherwise negative. PHYSICAL EXAMINATION GENERAL: The patient is a well-developed middle-aged female, seen sitting up in the stretcher, in no acute distress. VITAL SIGNS: Blood pressure 97/73, pulse 54, respirations 16, temp 98, O2 sat 97% on room air. HEENT: Pupils are equal and round. Extraocular muscles are intact. Oropharynx is clear. Oral mucosa is moist. There is no submandibular, cervical , or supraclavicular adenopathy. PULMONARY: Lungs are clear to auscultation bilaterally. CARDIAC: Normal S1, S2. Regular rate and rhythm. I do not appreciate any murmurs. There is no lower extremity edema. ABDOMEN: Bowel sounds present. Abdomen is soft, it is moderately distended. She is tender to palpation in the bilateral upper quadrants. MUSCULOSKELETAL: The patient moves all 4 extremities symmetrically. NEUROLOGIC: Cranial nerves II through XII are grossly intact. Sensation is intact to light touch throughout. Strength is 5/5 and symmetric to both upper and lower extremities bilaterally. SKIN: Warm and dry. There are no rashes. PSYCH: The patient is alert. She talks in a harley shaky voice, appearing to be feeble, whimpering at times during the evaluation. DIAGNOSTIC STUDIES/LAB DATA: WBC 6.6, hemoglobin 12.2, hematocrit 36, platelets 317. Sodium 137, potassium 3.6, chloride 105, CO2 26, BUN 14, creatinine 0.82, glucose 90, lactic acid 0.8, calcium 9.0. Bilirubin 0.4, AST 22, ALT 13, alk phos 51. CRP 1.03. Albumin 4.3. Lipase 42. ASSESSMENT AND PLAN: Ms. Nina is a 49-year-old female who claims that she has had years of intermittent abdominal issues though becoming more persistent since 03/23/19 where she developed severe epigastric abdominal pain, abdominal distention, nausea, and vomiting, who underwent CAT scan on 04/07/19 where possible SMA syndrome was identified. 1. Abdominal pain, nausea, and vomiting. It is unclear what is causing this. I do believe the patient is having true symptoms; however, there may be over exaggeration of her symptoms. It seems there is a significant psychiatric undertone to her presentation. There is a question of SMA syndrome. We have not repeated CAT scan here. Dr. Diggs was contacted by the GI provider and it has been recommended keeping the patient n.p.o. for EGD on the morning of 04/16/19. The patient will continue with p.r.n. Zofran and Dilaudid as needed for pain. She will also continue on her usual dose of omeprazole 20 mg daily. 2. Anxiety. The patient will continue on her Ativan 2 mg p.o. t.i.d. In the outpatient setting, perhaps this could be very slowly weaned down. She is on a very high dose. The patient will also continue on sertraline and trazodone. 3. Chronic pancreatitis. There is no evidence of this at this time. 4. DVT prophylaxis. According to the Adult Thrombosis Prophylaxis Risk Factor Assessment Guide, the patient has a total risk factor score of 1, making her low risk. Ambulation will be utilized for DVT prophylaxis. 5. Code status is full. TIME SPENT: Sixty five minutes were spent admitting this patient. [id number]/[facility] #: [id number] INES
[2019-04-16] MEDS ORDERED: Metoclopramide IV* 5 MG/ML 2 ML VIAL IV PRN (05:54)
[2019-04-16] MEDS ORDERED: Propofol* 10 MG/ML 20 ML BTL ONE (11:04)
[2019-04-16] MEDS ORDERED: Ondansetron INJ* 2 MG/ML VIAL IV PRN (11:37)
[2019-04-16] MEDS ORDERED: Acetaminophen TAB* 325 MG PO PRN (11:37)
[2019-04-16] MEDS ORDERED: Naloxone* 0.4 MG/ML 1 ML VIAL IV PRN (11:37)
[2019-04-16] MEDS ORDERED: DiMENhydriNATE IV* 50 MG/ML VIAL IV PUSH PRN (11:37)
--- NOTE | 2019-04-16 11:50 | PN ---
Subjective Date of Service: 04/16/19 Interval History: Patient complained of severe pain 03/26 this morning when I saw her, but she was talking to me comfortably at the meantime. She was very convinced about the idea of SMA syndrome, and started to tell me her symptoms started since she was teenager. She described as LUQ pain radiating to the back, together with nausea and vomiting for months at least. She claimed that she felt itchy after hydromorphine use, i offered nsiad injection, but but she still insisted she wanted opioid med due to the severity of her pain. Objective Active Medications: Acetaminophen (Tylenol Tab*) 650 mg PO ONCE PRN PRN Reason: PAIN - MILD Dimenhydrinate (Dramamine Iv*) 25 mg IV PUSH ONCE PRN PRN Reason: NAUSEA/VOMITING Diphenhydramine HCl (Benadryl Iv*) 25 mg IV Q6H PRN PRN Reason: ITCHING Last Admin: 04/16/19 09:53 Dose: 25 mg Docusate Sodium (Colace Cap*) 100 mg PO BID BETTY Gabapentin (Neurontin Cap(*)) 600 mg PO BID BETTY Hydromorphone HCl (Dilaudid Inj*) 0.5 mg IV Q4H PRN PRN Reason: severe pain Last Admin: 04/16/19 09:51 Dose: 0.5 mg Sodium Chloride (Ns 0.9% 1000 Ml) 1,000 mls @ 100 mls/hr IV PER RATE BETTY Lorazepam (Ativan Tab(*)) 2 mg PO TID PRN PRN Reason: ANXIETY Last Admin: 04/16/19 04:48 Dose: 2 mg Metoclopramide HCl (Reglan Iv*) 5 mg IV Q6H PRN PRN Reason: NAUSEA/VOMITING Last Admin: 04/16/19 10:02 Dose: 5 mg Naloxone HCl (Narcan*) 0.08 mg IV Q2M PRN PRN Reason: severe induced resp depression Ondansetron HCl (Zofran Inj*) 4 mg IV ONCE PRN PRN Reason: NAUSEA/VOMITING Pantoprazole Sodium (Protonix Tab*) 40 mg PO DAILY BETTY Sertraline HCl (Zoloft*) 200 mg PO DAILY BETTY Trazodone HCl (Desyrel Tab*) 200 mg PO BEDTIME BETTY Vital Signs - 8 hr 04/16/19 04/16/19 04/16/19 03:45 03:55 04:48 Temperature Pulse Rate Respiratory 17 17 18 Rate Blood Pressure (mmHg) O2 Sat by Pulse Oximetry 04/16/19 04/16/19 04/16/19 05:29 07:15 09:51 Temperature 97.8 F Pulse Rate 52 Respiratory 18 18 22 Rate Blood Pressure 116/69 (mmHg) O2 Sat by Pulse 100 Oximetry 04/16/19 04/16/19 04/16/19 09:53 10:00 11:27 Temperature Pulse Rate 60 Respiratory 20 18 Rate Blood Pressure (mmHg) O2 Sat by Pulse Oximetry Oxygen Devices in Use Now: None Exam: Appearance: crying due to pain. slender habitus Eyes: No Scleral Icterus Ears/Nose/Mouth/Throat: Clear Oropharnyx, Mucous Membranes Moist, Neck: NL Appearance and Movements; NL JVP, Trachea Midline Respiratory: Symmetrical Chest Expansion and Respiratory Effort, Clear to Auscultation Cardiovascular: NL Sounds; No Murmurs; No JVD, RRR Abdominal: LUQ tenderness, no rigidity, no rebound tenderness. Extremities: no edema, no calve tenderness Skin: no rash Result Diagrams: 04/15/19 21:35 04/15/19 21:35 Additional Lab and Data: Laboratory Tests 04/15/19 04/15/19 04/15/19 21:35 21:35 21:35 WBC 6.6 RBC 3.91 Hgb 12.2 Hct 36 MCV 91 MCH 31 MCHC 34 RDW 13 Plt Count 317 MPV 7.0 L Neut % (Auto) 58.8 Lymph % (Auto) 31.0 [place] % (Auto) 8.0 Eos % (Auto) 1.5 Baso % (Auto) 0.7 Absolute Neuts (auto) 3.9 Absolute Lymphs (auto) 2.0 Absolute Monos (auto) 0.5 Absolute Eos (auto) 0.1 Absolute Basos (auto) 0.0 Absolute Nucleated RBC 0.0 Nucleated RBC % 0.0 Sodium 137 Potassium 3.6 Chloride 105 Carbon Dioxide 26 Anion Gap 6 BUN 14 Creatinine 0.82 Est GFR ( Amer) 88.9 Est GFR (Non-Af Amer) 73.5 BUN/Creatinine Ratio 17.1 Glucose 90 Lactic Acid 0.8 Calcium 9.0 Total Bilirubin 0.40 AST 22 ALT 13 Alkaline Phosphatase 51 C-Reactive Protein 1.03 Total Protein 6.7 Albumin 4.3 Globulin 2.4 Albumin/Globulin Ratio 1.8 Lipase 42 Assess/Plan/Problems-Billing Assessment: 49 y/o female with history of anxiety, fibromyalgia, chronic pancreatitis, renal calculi, presented with chronic abdominal pain worsening for 1 day, found to have possible SMA sydnrome in previous CT scan in [place]. - Patient Problems (1) Abdominal pain Current Visit: No Status: Chronic Priority: Medium Onset Date: 04/06/14 Code(s): R10.9 - UNSPECIFIED ABDOMINAL PAIN SNOMED Code(s): 38838386 Comment: - chronic abdominal pain, possible SMA syndrome as indicated in CT scan; chronic pancreatitis as per pt's history but not revealed in CTAP. - EGD and GI consult today - pain control with iv hydromorphine and iv ketorolac (2) Anxiety Current Visit: No Status: Chronic Code(s): F41.9 - ANXIETY DISORDER, UNSPECIFIED SNOMED Code(s): 03005477 Comment: - continue po lorazepam prn, sertraline, trazodone as per her home med (3) DVT prophylaxis Current Visit: Yes Status: Acute Code(s): Z29.9 - ENCOUNTER FOR PROPHYLACTIC MEASURES, UNSPECIFIED SNOMED Code(s): 182327664 Comment: ambulatory Status and Disposition: Inpatient Medicine. Attestation Documenting Resident: Kortney Rahman Supervising Physician: Ria Carty Attending/Supervising Physician Comment: Kinza has had many years of abdominal pain with largely unrevealing workups as an outpatient except the finding of chronic pancreatitis and IBS. She presents with worsening abdominal pain. Vitals and labs are within normal limits. Pain is out of proportion to exam. CT showed questions of SMA syndrome; appreciate GI's input on the diagnostic value of this CT in SMA syndrome. For EGD today. Attestation: This service has been performed in part by a resident under the direction of a teaching physician.I, Ria Carty, performed the service, or was physically present during the critical, or boyle portions of the service, furnished by the resident. I participated in the management of the patient.
--- NOTE | 2019-04-16 12:39 | PN ---
Progress Note - Progress Note Date of Service: 04/16/19 Note: GI Brief EGD Note E: Normal, bx taken G: mild antral gastritis. BX D: normal, no clear narrowing to D2,D3. bx taken Rec: Reviewed records from [place] [facility]. CT at [place], narrowing to SMA angle- non specific. Also colon wall thickening in descending colon Difficult case. No calcifications or sequela of chronic pancreatitis. Hemangioma of liver. Suspect this may be more somatization/functional. Pain out of proportion to physical exam findings with distraction. SMA syndrome is difficult to diagnose and requires a multidisciplinary approach with Radiology/ GI and Surgery. Will plan colonoscopy on 04/17/19 if negative would advance diet and plan outpatient evaluation at [facility] Paras Callejas DO 04/16/19
[2019-04-16] MEDS: Docusate CAP* 100 MG PO SCH ×2 (13:50→21:12)
[2019-04-16] MEDS: Gabapentin CAP(*) 300 MG PO SCH ×2 (13:50→21:12)
[2019-04-16] MEDS ORDERED: Ketorolac INJ* 15 MG/ML 1 ML VIAL IV PUSH PRN (13:59)
[2019-04-16] MEDS: Sertraline* 100 MG TAB PO SCH ×2 (14:23→14:53)
[2019-04-16] MEDS: Pantoprazole TAB * 40 MG TAB PO SCH ×2 (14:23→14:53)
[2019-04-16] MEDS ORDERED: PEG 3000 GI LAVAGE* 1 GALLON PO ONE (16:00)
--- NOTE | 2019-04-16 19:56 | CONS ---
GI CONSULTATION REPORT: DATE OF CONSULT: 04/16/19 REQUESTING PHYSICIAN: Sarah Beth Rodríguez DO. REASON FOR CONSULTATION: Abdominal pain and nausea. HISTORY OF PRESENT ILLNESS: This is a 49-year-old female with a history of anxiety, renal calculi, possible chronic pancreatitis who states she developed severe abdominal pain since around 03/23/19. She has bounced around to multiple ERs including [place], [place], and [place]. She states that the pain is typically left upper quadrant, periumbilical, unchanged. It can be worse when eating, but is always there, better with pain medicines. She denies any black or blood in the stool. She does admit to chronic constipation and moves her bowels every few days, which is followed by diarrhea and then the cycle repeats. She denies any dysphagia or odynophagia. She does have associated vomiting with this epigastric pain. She states this is mostly dry heaving, occasionally clear emesis, denies any hematemesis. She had a CT scan done in [place] that showed a possible narrow angle to the SMA and colon wall thickening of the mid descending colon. There was a concern for possible colitis in the past; however, she had a colonoscopy and flexible sigmoidoscopy by Dr. Infante in 2004 and 2005 respectively with negative biopsies for inflammatory bowel disease. The remainder of the 14-point review of systems is grossly negative. PAST MEDICAL HISTORY: 1. Anxiety. 2. Renal calculi. 3. Fibromyalgia. PAST SURGICAL HISTORY: 1. . 2. Total abdominal hysterectomy. 3. Cholecystectomy. 4. Tonsillectomy. 5. Breast reduction with implant. HOME MEDICATIONS: 1. Progesterone. 2. Sertraline. 3. Omeprazole. 4. Ritalin. 5. Soma. 6. Ferrous sulfate. 7. Colace. 8. Estradiol. 9. Gabapentin. 10. Ativan. 11. Trazodone. ALLERGIES: Include MORPHINE, COMPAZINE, TORADOL, BENADRYL and PERCOCET. FAMILY HISTORY: Paternal colon cancer. SOCIAL HISTORY: Does not smoke, does not use alcohol. REVIEW OF SYSTEMS: Remainder of the 14-point review of systems is grossly negative. PHYSICAL EXAMINATION: Vital Signs: Blood pressure is 108/65, pulse 56, respiratory rate 18, afebrile. In general, alert, anxious, no acute distress. HEENT: Atraumatic, normocephalic. Pupils equal, round, reactive to light. Extraocular movements are intact. Conjunctivae are pink. Sclerae anicteric. Cardiovascular: Regular rate and rhythm. S1, S2. Respiratory: Clear to auscultation bilaterally. Abdomen: Soft, tenderness to palpation but vastly less upon distraction. Bowel sounds positive. No guarding or rebound. Extremities: No clubbing, no cyanosis, no edema. Psych: Anxious, guarded. LABORATORY DATA: Hemoglobin 12.2, platelet count 317. Sodium 137, potassium 3.6, AST 22, ALT 13, alkaline phosphatase 51, CRP is 1.03. She had a CT done at [facility] that showed possible narrowing of the SMA angle over the duodenum. In addition, there was an area of colonic wall thickening in the descending colon. ASSESSMENT AND PLAN: This is a 49-year-old female with abdominal pain. 1. Abdominal pain. She has not had an upper endoscopy in over 10 to 15 years. She has a radiology report from [facility] that carries a potential possibility of SMA syndrome. This is an incredibly difficult diagnosis to make. She has a diagnosis of exclusion after looking at the entire amount of data. I recommend an upper endoscopy to evaluate for a potential ulcer or other cause of her abdominal pain. I discussed the risks, benefits, and alternatives and she would like to proceed. In addition, she had a segment of colonic wall thickening. If no etiology is found, I would recommend a colonoscopy the following day to evaluate for colitis. This is a complicated case and there may be a component of somatization. If no clear etiology found after EGD and colonoscopy, I would recommend evaluation at a tertiary care center as an outpatient perhaps in the [facility] or [place] where a multidisciplinary team can approach the radiology findings including a surgeon radiologist and administrative support coordinator to see if there is the possibility of SMA syndrome. 2. Colonic wall thickening. Pending clinical course, we will consider colonoscopy. 3. Documented history of chronic pancreatitis. CT at [facility] did not reveal any calcifications, very mild lipase elevation in the past, did not see evidence of chronic pancreatitis at this time. [id number]/[facility] #: [id number] MTDYuan
[2019-04-16] MEDS: traZODone TAB* 100 MG PO SCH (21:13)
[2019-04-16] MEDS: D5NS 0.9% 1000 ML BAG* 1,000 ML IV SCH (21:14)
[2019-04-17] MEDS: diPHENhydraMINE IV* 50 MG/ML 1 ml VIAL (BENADRYL) IV PRN ×5 (03:39→22:31)
[2019-04-17] MEDS: HYDROmorphone INJ* 0.5 MG/0.5 ML SYRINGE IV PRN ×5 (03:40→22:31)
[2019-04-17] MEDS ORDERED: PEG 3000 GI LAVAGE* 1 GALLON PO ONE (07:00)
[2019-04-17] MEDS: D5NS 0.9% 1000 ML BAG* 1,000 ML IV SCH (07:55)
[2019-04-17] MEDS ORDERED: Sodium Phosphate ADULT ENEMA* 118 ml bottle PR ONE ×2 (08:05→10:01)
[2019-04-17] MEDS: Docusate CAP* 100 MG PO SCH ×2 (08:38→20:41)
[2019-04-17] MEDS: Gabapentin CAP(*) 300 MG PO SCH ×2 (08:38→20:48)
[2019-04-17] MEDS: Pantoprazole TAB * 40 MG TAB PO SCH (08:39)
[2019-04-17 09:13] LABS: ABS Eosinophils 0.2 10^3/ul (0-0.6); ABS Lymphocytes 1.6 10^3/ul (1.0-4.8); ABS Monocytes 0.5 10^3/ul (0-0.8); ABS Neutrophils 3.2 10^3/ul (1.5-7.7); Eosinophil % 4.4 %; Hematocrit 38 % (35-47); Hemoglobin 12.7 g/dL (12.0-16.0); Lymphocyte % 29.3 %; Mean Corpuscular HGB Conc 34 g/dL (31-36); Mean Corpuscular Hemoglobin 31 pg (27-31); Mean Corpuscular Volume 92 fL (80-97); Platelet Count 301 10^3/uL (150-450); Red Blood Count 4.08 10^6 /uL (3.70-4.87); Red Cell Distribution Width 13 % (10-15); White Blood Count 5.6 10^3/uL (3.5-10.8)
[2019-04-17] MEDS: LORazepam TAB(*) 1 MG PO PRN ×2 (09:22→20:48)
[2019-04-17 09:29] LABS: BUN/Creatinine Ratio 10.7 (8-20); Calcium 8.5 mg/dL (8.6-10.3); EGFR African American 98.6 (>60); EGFR Non-African American 81.5 (>60); Potassium 3.6 mmol/L (3.5-5.0)
[2019-04-17] MEDS ORDERED: Buffered Lidocaine 1% SYRIN* 1 ML/SYRINGE INTRADERM ONE (12:39)
[2019-04-17] MEDS ORDERED: Dexamethasone IV* 4 MG/ML 1 ML (4 MG) IV SLOW PU ONE (12:39)
[2019-04-17] MEDS ORDERED: Midazolam* 1 MG/ML 5 ML VIAL (5 MG) ONE ×2 (12:53→15:28)
[2019-04-17] MEDS ORDERED: fentaNYL* 50 MCG/ML 2 ML VIAL (100 MCG VIAL) ONE ×2 (12:53→15:28)
[2019-04-17] MEDS ORDERED: Propofol* 10 MG/ML 20 ML BTL ONE (12:53)
[2019-04-17] MEDS ORDERED: Ondansetron INJ* 2 MG/ML VIAL ONE (12:53)
[2019-04-17] MEDS ORDERED: Sodium Phosphate ADULT ENEMA* 118 ml bottle ONE (13:48)
[2019-04-17] MEDS ORDERED: Ondansetron INJ* 2 MG/ML VIAL IV PRN (15:20)
[2019-04-17] MEDS ORDERED: Naloxone* 0.4 MG/ML 1 ML VIAL IV PRN (15:20)
[2019-04-17] MEDS ORDERED: Scopolamine 1.5 mg* PATCH TRANSDERM PRN (15:20)
[2019-04-17] MEDS ORDERED: Propofol* 500 MG/50 ML BTL ONE (15:28)
--- NOTE | 2019-04-17 16:24 | PN ---
Progress Note - Progress Note Date of Service: 04/17/19 Note: GI Brief Colonoscopy Note: Colon to TI No inflammation, prep poor on right, fair on left. Area of concern (descending) visualized well, no lesions to correlate with CT finding, likely reading from collapsed colon Rec: Advance diet as tolerated. Limit opiods Will need to follow up in [place] for tertiary care of clinical question of SMA syndrome. although symptomatically does not correlate (constant pain, she is not well between episodes). Repeat colon in 6months with extended prep, prep today was not sufficient for polyp detection although no large lesions identified. She can follow up with Nancy Lentz in our office in 3-4 weeks Should be discharged on bowel regimen miralax BID, and senna sulma Callejas DO 04/17/19 [id number]
[2019-04-17] MEDS ORDERED: Influenza VAC *QUAD* 2019-20* 0.5 ML SYRINGE IM ONE (16:49)
[2019-04-17] MEDS: Lactated Ringers 1000 ML Bag* 1,000 ML IV SCH (17:42)
[2019-04-17] MEDS: Sertraline* 100 MG TAB PO SCH (17:57)
--- NOTE | 2019-04-17 18:14 | PN ---
Subjective Date of Service: 04/17/19 Interval History: Patient is still complaining of abdominal pain though much improved. She is very convinced with SMA syndrome, and told me she would like to go to [place] to see vascular surgeon if we discharge her. She believed that would help her definitely. I explained to her that the diagnosis was not so sure at this moment, but she felt she rather believed that was the answer Objective Active Medications: Diphenhydramine HCl (Benadryl Iv*) 25 mg IV Q4H PRN PRN Reason: ITCHING Last Admin: 04/17/19 17:41 Dose: 25 mg Docusate Sodium (Colace Cap*) 100 mg PO BID [facility] Last Admin: 04/17/19 08:38 Dose: Not Given Gabapentin (Neurontin Cap(*)) 600 mg PO BID [facility] Last Admin: 04/17/19 08:38 Dose: Not Given Hydromorphone HCl (Dilaudid Inj*) 0.5 mg IV Q4H PRN PRN Reason: severe pain Last Admin: 04/17/19 17:41 Dose: 0.5 mg Lactated Ringer's (Lactated Ringers 1000 Ml Bag*) 1,000 mls @ 125 mls/hr IV PER RATE [facility] Last Admin: 04/17/19 17:42 Dose: 125 mls/hr Ketorolac Tromethamine (Toradol Inj*) 15 mg IV PUSH Q6H PRN PRN Reason: PAIN - MILD Stop: 04/21/19 13:58 Lorazepam (Ativan Tab(*)) 2 mg PO TID PRN PRN Reason: ANXIETY Last Admin: 04/17/19 09:22 Dose: 2 mg Metoclopramide HCl (Reglan Iv*) 5 mg IV Q6H PRN PRN Reason: NAUSEA/VOMITING Last Admin: 04/16/19 10:02 Dose: 5 mg Naloxone HCl (Narcan*) 0.08 mg IV Q2M PRN PRN Reason: severe induced resp depression Ondansetron HCl (Zofran Inj*) 4 mg IV ONCE PRN PRN Reason: NAUSEA/VOMITING Pantoprazole Sodium (Protonix Tab*) 40 mg PO DAILY [facility] Last Admin: 04/17/19 08:39 Dose: Not Given Polyethylene Glycol/Electrolytes (Miralax*) 17 gm PO 0800,2100 [facility] Scopolamine (Transderm-Scop 1.5 Mg Patch*) 1 patch TRANSDERM Q72H PRN PRN Reason: Nausea/Vomiting Senna (Senokot 8.6 Mg Tab*) 1 tab PO DAILY [facility] Sertraline HCl (Zoloft*) 200 mg PO DAILY [facility] Last Admin: 04/17/19 17:57 Dose: Not Given Trazodone HCl (Desyrel Tab*) 200 mg PO BEDTIME [facility] Last Admin: 04/16/19 21:13 Dose: 200 mg Vital Signs - 8 hr 04/17/19 04/17/19 04/17/19 11:15 11:59 12:21 Temperature 97.8 F Pulse Rate 63 Respiratory 20 18 16 Rate Blood Pressure 92/54 (mmHg) O2 Sat by Pulse 98 Oximetry 04/17/19 04/17/19 04/17/19 13:28 16:00 16:11 Temperature 98.2 F 98.2 F Pulse Rate 60 61 Respiratory 14 16 Rate Blood Pressure 102/67 84/58 (mmHg) O2 Sat by Pulse 96 93 97 Oximetry 04/17/19 04/17/19 04/17/19 16:15 16:20 16:30 Temperature Pulse Rate 55 51 58 Respiratory 16 16 16 Rate Blood Pressure 84/53 85/51 89/58 (mmHg) O2 Sat by Pulse 97 97 97 Oximetry 04/17/19 04/17/19 04/17/19 16:45 16:54 17:30 Temperature 98.3 F Pulse Rate 55 55 57 Respiratory 16 16 Rate Blood Pressure 89/59 107/70 (mmHg) O2 Sat by Pulse 97 93 100 Oximetry 04/17/19 04/17/19 17:31 17:41 Temperature Pulse Rate Respiratory 16 16 Rate Blood Pressure (mmHg) O2 Sat by Pulse Oximetry Oxygen Devices in Use Now: None Exam: Appearance: comfortable looking Eyes: No Scleral Icterus Ears/Nose/Mouth/Throat: Clear Oropharnyx, Mucous Membranes Moist, Neck: NL Appearance and Movements; NL JVP, Trachea Midline Respiratory: Symmetrical Chest Expansion and Respiratory Effort, Clear to Auscultation Cardiovascular: NL Sounds; No Murmurs; No JVD, RRR Abdominal: LUQ tenderness, no rigidity, no rebound tenderness. BS active Extremities: no edema, no calve tenderness Skin: no rash Result Diagrams: 04/17/19 09:00 04/17/19 09:00 Additional Lab and Data: Laboratory Tests 04/15/19 04/15/19 04/15/19 21:35 21:35 21:35 WBC 6.6 RBC 3.91 Hgb 12.2 Hct 36 MCV 91 MCH 31 MCHC 34 RDW 13 Plt Count 317 MPV 7.0 L Neut % (Auto) 58.8 Lymph % (Auto) 31.0 [place] % (Auto) 8.0 Eos % (Auto) 1.5 Baso % (Auto) 0.7 Absolute Neuts (auto) 3.9 Absolute Lymphs (auto) 2.0 Absolute Monos (auto) 0.5 Absolute Eos (auto) 0.1 Absolute Basos (auto) 0.0 Absolute Nucleated RBC 0.0 Nucleated RBC % 0.0 Sodium 137 Potassium 3.6 Chloride 105 Carbon Dioxide 26 Anion Gap 6 BUN 14 Creatinine 0.82 Est GFR ( Amer) 88.9 Est GFR (Non-Af Amer) 73.5 BUN/Creatinine Ratio 17.1 Glucose 90 Lactic Acid 0.8 Calcium 9.0 Total Bilirubin 0.40 AST 22 ALT 13 Alkaline Phosphatase 51 C-Reactive Protein 1.03 Total Protein 6.7 Albumin 4.3 Globulin 2.4 Albumin/Globulin Ratio 1.8 Lipase 42 Assess/Plan/Problems-Billing Assessment: 49 y/o female with history of anxiety, fibromyalgia, chronic pancreatitis, renal calculi, presented with chronic abdominal pain worsening for 1 day, found to have possible SMA sydnrome in previous CT scan in [place], here for further assessments. - Patient Problems (1) Abdominal pain Current Visit: No Status: Chronic Priority: Medium Onset Date: 04/06/14 Code(s): R10.9 - UNSPECIFIED ABDOMINAL PAIN SNOMED Code(s): 29390731 Comment: - chronic abdominal pain, not likely SMA syndrome in view of constant nature of her pain since young without any nutritional problems;EGD and colonoscopy has been normal,more like somatization - pain control with iv hydromorphine and iv ketorolac for now - senna and miralax as per GI - will advance diet - will follow up with GI outpatient (2) Anxiety Current Visit: No Status: Chronic Code(s): F41.9 - ANXIETY DISORDER, UNSPECIFIED SNOMED Code(s): 43319961 Comment: - continue po lorazepam prn, sertraline, trazodone as per her home med (3) DVT prophylaxis Current Visit: Yes Status: Acute Code(s): Z29.9 - ENCOUNTER FOR PROPHYLACTIC MEASURES, UNSPECIFIED SNOMED Code(s): 406026742 Comment: ambulatory Status and Disposition: Inpatient Medicine. Attestation Documenting Resident: Kortney Rahman Supervising Physician: Ria Carty Attending/Supervising Physician Comment: I saw Kinza when she returned from her colonoscopy, which was reported to be unremarkable by Dr. Callejas. Symptoms not consistent with SMA syndrome but she will need GI follow up. Attestation: This service has been performed in part by a resident under the direction of a teaching physician.I, Ria Carty, performed the service, or was physically present during the critical, or boyle portions of the service, furnished by the resident. I participated in the management of the patient.
[2019-04-17] MEDS: Polyethylene Glycol 3350* 17 GM PACKET PO SCH (20:41)
[2019-04-17] MEDS: traZODone TAB* 100 MG PO SCH (20:47)
[2019-04-18] MEDS: Lactated Ringers 1000 ML Bag* 1,000 ML IV SCH (03:28)
[2019-04-18] MEDS: HYDROmorphone INJ* 0.5 MG/0.5 ML SYRINGE IV PRN ×2 (03:29→07:55)
[2019-04-18] MEDS: diPHENhydraMINE IV* 50 MG/ML 1 ml VIAL (BENADRYL) IV PRN ×2 (03:30→07:54)
[2019-04-18] MEDS: Gabapentin CAP(*) 300 MG PO SCH (08:35)
[2019-04-18] MEDS: Pantoprazole TAB * 40 MG TAB PO SCH (08:35)
[2019-04-18] MEDS: Sertraline* 100 MG TAB PO SCH (08:35)
[2019-04-18] MEDS: Docusate CAP* 100 MG PO SCH (08:37)
[2019-04-18] MEDS: Polyethylene Glycol 3350* 17 GM PACKET PO SCH (08:37)
[2019-04-18] MEDS ORDERED: Senna TAB 8.6 mg* TAB PO SCH (09:00)
[2019-04-18] MEDS ORDERED: Acetaminophen ADULT LIQ* 650 MG/20.3 ML UDC PO PRN (09:40)
[2019-04-18] MEDS ORDERED: Ketorolac INJ* 15 MG/ML 1 ML VIAL IM PRN (09:41)
[2019-04-18] MEDS ORDERED: traMADol TAB* 50 MG PO ONE (11:29)
[2019-04-18 12:24] VITALS: BP 90/58
[2019-04-18] MEDS: LORazepam TAB(*) 1 MG PO PRN (13:08)
--- NOTE | 2019-04-18 21:31 | PRO ---
CC: BEL Ramirez; BEL Mayfield * ESOPHAGOGASTRODUODENOSCOPY REPORT: DATE OF PROCEDURE: 04/16/19 PROCEDURE PERFORMED: Complete esophagogastroduodenoscopy with biopsies. INDICATION FOR PROCEDURE: Abdominal pain. MEDICATIONS GIVEN: Please see anesthesia record. DESCRIPTION OF PROCEDURE: After the EGD procedure including the risks, benefits , and alternatives with the risks not limited to perforation, surgery, missed lesions, and/or were explained to the patient, written informed consent was obtained, IV medication was given, and a bite block was placed between the teeth. The adult Olympus gastroscope was then inserted into the patient's oropharynx into the tubular esophagus. The tubular esophagus was normal in appearance; however, I did take biopsies to rule out microscopic reflux disease. The scope was advanced to the lower esophageal sphincter into the stomach. There was mild antral predominant gastritis. This was biopsied. On retroflexion, no significant hiatal hernia was visualized. The scope was advanced through the widely patent pylorus into the duodenum, C-loop, distal duodenum, and bulb. These were normal in appearance. I did not appreciate any significant narrowing in D2 or D3. I did biopsies of this area given her symptomatology. The scope was then removed from the patient. She tolerated the procedure well. She returned to the recovery room in stable condition. IMPRESSION: 1. Complete esophagogastroduodenoscopy with biopsies. 2. Mild antral gastritis, biopsied, unlikely source of abdominal pain. 3. Otherwise normal EGD. No significant stenosis noted of D2 or D3. RECOMMENDATIONS: The patient has an abnormal CT from [place] with thickening in the descending colon. We will plan for colonoscopy on 04/17/19. [id number]/[facility] #: [id number] [facility]
--- NOTE | 2019-04-18 21:47 | PRO ---
CC: BEL Seals; BEL Mayfield * COLONOSCOPY REPORT: DATE OF PROCEDURE: 04/17/19 INDICATION FOR PROCEDURE: Abnormal CAT scan, abdominal pain. PROCEDURE PERFORMED: Complete colonoscopy to the terminal ileum. MEDICATIONS GIVEN: Please see anesthesia record. DESCRIPTION OF PROCEDURE: After the colonoscopy procedure including the risks, benefits, and alternatives with the risks not limited to perforation, surgery, missed lesions, and/or were explained to the patient, a written informed consent was obtained. IV medication was given by the anesthesia service and a rectal exam was performed. The rectal exam was unremarkable. The adult Olympus colonoscope was then inserted into the patient's rectum and advanced very carefully through the entirety of the colon into the cecal base. Cecal base was carefully inspected. It was normal in appearance. The terminal ileal wall was identified and intubated x4 to 5 cm and normal. Scope was returned to the cecum. The preparation was quite poor, however, with position changes I was able to exclude any large lesions and mucosal wall segmentally were decently visualized. I did not see any evidence of inflammatory bowel disease and did not see any evidence of large lesions. The scope was removed over the next 8 minutes. Again, views were poor, but no large lesions identified. On return to the rectum, direct views were normal. On retroflexion, the views were normal as well. The scope was then removed from the patient. She tolerated the procedure well. She returned to the recovery room in stable condition. IMPRESSION: 1. Complete colonoscopy of the terminal ileum. 2. Poor prep. 3. No large lesions or evidence of inflammatory bowel disease identified. 4. Decent visualization of the descending colon, certainly no findings to correlate with her CT at [place]. Suspect that this was underdistention and layering of the colon. RECOMMENDATIONS: Difficult case. No etiology of abdominal pain visualized today. Certainly constipation I feel is likely a significant factor that can exacerbate, however, she states she does not feel any better after having the colonoscopy prep today. She does need to be on a bowel regimen at least b.i.d. MiraLAX and potentially on the novel medication for constipation. She can followup in the office with Nancy Hawthorne in regards to this for further management. Her pain has been quite out of the portion to the physical exam findings. The diagnosis of SMA syndrome is incredibly difficult, although the patients are typically well between episodes and her pain has been relatively constant. I would recommend a tertiary care evaluation at [facility] where multidisciplinary team of Radiology, GI, and Surgery can evaluate her CT findings to see if there is a significant change in the angle of the SMA that is contributing to her symptoms. Would avoid narcotics and NSAIDs. [id number]/[facility] #: [id number] [facility]
--- NOTE | 2019-04-19 23:23 | DS ---
CC: Paras Callejas DO; BEL Ramirez * DISCHARGE SUMMARY: DATE OF ADMISSION: 04/16/19 DATE OF DISCHARGE: 04/18/19 PRINCIPAL DISCHARGE DIAGNOSIS: Chronic abdominal pain. SECONDARY DISCHARGE DIAGNOSES: 1. Anxiety. 2. Chronic pancreatitis. 3. Fibromyalgia. 4. History of renal calculi. MEDICATIONS AT DISCHARGE: 1. Trazodone 200 mg q.h.s. 2. Soma 350 mg t.i.d. p.r.n. pain. 3. Progesterone 200 mg q.h.s. 4. Sertraline 200 mg daily. 5. Ritalin mg b.i.d. 6. Gabapentin 600 mg b.i.d. 7. Lorazepam 2 mg t.i.d. p.r.n. anxiety. 8. Omeprazole 20 mg daily. 9. Ferrous sulfate 325 mg daily. 10. Docusate 100 mg b.i.d. 11. Estradiol 1 mg daily. 12. Tylenol 650 mg q.6 p.r.n. pain. 13. Senna 8.6 mg daily. 14. MiraLax 17 g b.i.d. p.r.n. PHYSICAL EXAMINATION: Temperature 98.4, heart rate 57, respiratory rate 16, pulse ox 94% on room air, blood pressure of 90/58. General: Alert, tearful woman, in no distress. HEENT: Pupils equal, round, and reactive to light with no nystagmus. Oral mucosa is moist. No pharyngeal exudates or erythema. No ulcers. Neck: No JVP, no adenopathy. Chest: She is in a regular rate and rhythm, with no murmurs. Her lungs are clear bilaterally. Abdomen: Soft, though she jumps to light palpation, which improves with distraction. No organomegaly. No rebound. No rigidity. No CVA tenderness. Her bowel sounds are normoactive. Extremities: No edema. No rashes. No ulcers. PERTINENT FINDINGS ON THIS ADMISSION: A CT abdomen and pelvis performed at [facility] showed a hypoattenuating liver lesion consistent with a hemangioma and an abrupt caliber change in the second part of the duodenum as it passes under the SMA with acute angle branch point from the aorta and in the correct clinical setting, this may represent SMA syndrome, recommend clinical correlation. HOSPITAL COURSE BY PROBLEM: Chronic abdominal pain. Ms. Nina complains of abdominal pain since she was in her teens; however, it has been getting worse over the past month. She has been seeing her primary care physician in [place] and has been undergoing a workup with them. She has had several hospitalizations and GI evaluations working up this abdominal pain, and currently carries a diagnosis of chronic pancreatitis. However, the CT scan showed findings concerning for SMA syndrome, so GI was consulted. She was evaluated by Dr. Callejas, who felt that her symptoms were not consistent with SMA syndrome as she had no obstructive symptoms, no weight loss, no evidence of electrolyte arrangements and no signs of malnourishment. In addition, her symptoms have been persistent for many years and not intermittent as would be expected with SMA syndrome. Still, this is a diagnosis that must be made in a multispecialty approach that cannot be completed here at [facility], and so Dr. Callejas recommended a referral for further workup at [facility] and she is agreeable to this plan. While she was here, she underwent EGD and colonoscopy, neither found any explanation for her chronic abdominal pain. The impression from the EGD on 04/16/19 was complete EGD with biopsies, mild antral gastritis which was unlikely to be the source of abdominal pain, and an otherwise normal EGD. A colonoscopy performed on 04/17/19, impression showed complete colonoscopy of the terminal ileum, poor prep, no large lesions or evidence of inflammatory bowel disease identified, and decent visualization of the descending colon, certainly no findings to correlate with her CT at [place]. Suspect that this was underdistention and layering of the colon. Dr. Callejas suggested that constipation may be exacerbating her symptoms and recommended continuing MiraLax at the time of discharge and follow up with Nancy Hawthorne for further workup as well as referral to [facility] where a team of Radiology, GI, and Surgery can evaluate the CT findings and determine whether SMA syndrome may be contributing to her symptoms. She is agreeable to this plan and has been in touch with [facility] prior to discharge for further workup. CONDITION AT THE TIME OF DISCHARGE: Stable. DISPOSITION: Ms. Nina was discharged to home on 04/18/19 with her family. She will follow up with her primary care provider, Nancy Hawthorne of GI, and will arrange an appointment with [facility]. [id number] #: [id number] MTDD
== END 2019-04-18 13:35 | disposition home or self-care (01) | DRG 251 ==
LOC: ED 20:38 → MED 04-16 02:23
PROVIDERS: ADMIT Hospitalist; ATTEND Internal Medicine
PROC: 0DD98ZX Extraction of Duodenum, Via Natural or Artificial Opening Endoscopic, Diagnostic (ICD-10-PCS; 2019-04-16)
PROC: 0DD68ZX Extraction of Stomach, Via Natural or Artificial Opening Endoscopic, Diagnostic (ICD-10-PCS; 2019-04-16)
PROC: 0DD58ZX Extraction of Esophagus, Via Natural or Artificial Opening Endoscopic, Diagnostic (ICD-10-PCS; 2019-04-16)
PROC: 0DJD8ZZ Inspection of Lower Intestinal Tract, Via Natural or Artificial Opening Endoscopic (ICD-10-PCS; principal; 2019-04-17 13:45)
DX: R10.13 Epigastric pain (principal); K86.1 Other chronic pancreatitis; F41.9 Anxiety disorder, unspecified; M79.7 Fibromyalgia; K29.60 Other gastritis without bleeding; Z87.442 Personal history of urinary calculi; Z79.890 Hormone replacement therapy; Z79.899 Other long term (current) drug therapy; Z88.5 Allergy status to narcotic agent; Z88.8 Allergy status to other drugs, medicaments and biological substances; Z82.49 Family history of ischemic heart disease and other diseases of the circulatory system; Z80.0 Family history of malignant neoplasm of digestive organs; Z80.3 Family history of malignant neoplasm of breast
CPT/HCPCS: 36415; 80048; 80053; 81003; 83036; 83605; 83690; 85025; 86140; 87077; 88305; 90686; 99284; A9270-GY; J1170; J1200; J2250; J2405; J2704; J2765; J3010

== ENCOUNTER 2019-06-27 20:05 | Inpatient (IN) | payer BC, MEDICARE ==
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
[2019-06-27] MEDS ORDERED: Ondansetron INJ* 2 MG/ML VIAL IV ONE (20:24)
[2019-06-27] MEDS ORDERED: HYDROmorphone INJ* 0.5 MG/0.5 ML SYRINGE IV ONE ×2 (20:24→23:14)
[2019-06-27] MEDS ORDERED: NS 0.9% 1000 ML** 2,000 ML IV ONE (20:24)
[2019-06-27] MEDS ORDERED: diPHENhydraMINE IV* 50 MG/ML 1 ml VIAL (BENADRYL) SLOW PUSH ONE (20:28)
[2019-06-27 20:46] LABS: ABS Eosinophils 0.3 10^3/ul (0-0.6); ABS Lymphocytes 2.3 10^3/ul (1.0-4.8); ABS Monocytes 0.5 10^3/ul (0-0.8); ABS Neutrophils 3.5 10^3/ul (1.5-7.7); Hematocrit 37 % (35-47); Hemoglobin 12.4 g/dL (12.0-16.0); Lymphocyte % 34.3 %; Mean Corpuscular HGB Conc 34 g/dL (31-36); Mean Corpuscular Hemoglobin 31 pg (27-31); Mean Corpuscular Volume 91 fL (80-97); Mean Platelet Volume 6.8 fL (7.4-10.4); Platelet Count 286 10^3/uL (150-450); Red Blood Count 4.06 10^6 /uL (3.70-4.87); Red Cell Distribution Width 13 % (10-15); White Blood Count 6.7 10^3/uL (3.5-10.8)
--- OUTSIDE RECORDS SUMMARY | 2019-06-27 20:52 | XMS REPORT | Continuity of Care Document ---
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 [phone] Problems Active Problems Provider Date Family history of malignant neoplasm of Nancy Hawthorne PA-C Onset: gastrointestinal tract Hemorrhage of rectum and anus Nancy Hawthorne PA-C Onset: 04/14/2019 Melena Nancy Hawthorne PA-C Onset: 04/14/2019 Diarrhea Nancy Hawthorne PA-C Onset: 04/14/2019 Nausea and vomiting Nancy Hawthorne PA-C Onset: 04/14/2019 Generalized abdominal pain Nancy Hawthorne PA-C Onset: 04/14/2019 Social History Type Date Description Comments Sex Female Tobacco Use Start: Unknown Patient has never smoked Smoking Status Reviewed: 04/14/19 Patient has never smoked Allergies, Adverse Reactions, Alerts Active Allergies Reaction Severity Comments Date Morphine 04/14/2019 Compazine 04/14/2019 Ketorolac Tromethamine 04/14/2019 Percocet 04/14/2019 Benadryl paroxymal reaction 04/14/2019 Medications Active Medications SIG Qnty Indications Ordering Date Provider Estradiol Take One Tablet Unknown 1mg Tablets By Mouth Every Day Gabapentin Take One Tablet Unknown 600mg Tablets By Mouth Twice A Day Lorazepam Take One Tablet Unknown 2mg Tablets By Mouth Three Times A Day Maximum Daily Dose 3 Trazodone HCL Take Two Tablets Unknown 100mg Tablets By Mouth AT Bedtime Dicyclomine HCL Take One Capsule Unknown 10mg Capsules By Mouth Every 6 Hours as Needed For Bloating Carisoprodol Take One Tablet Unknown 350mg Tablets By Mouth Three Times A Day Maximum Daily Dose 3 Methylphenidate HCL Take One Tablet Unknown 20mg By Mouth Twice Tablets Daily On Empty Stomach Maximum Daily Dose 2 Not Taking Right Now Immunizations Description No Information Available Vital Signs Date Vital Result Comment 04/14/2019 10:51am Height 63 inches 5'3" Weight 133.00 lb BP Systolic 115 mmHg BP Diastolic 73 mmHg Heart Rate 81 /min BMI (Body Mass Index) 23.6 kg/m2 Results Test Acquired Date Facility Test Result H/L Range Note Laboratory test 04/16/2019 [facility] Surgical SEE RESULT 1 finding Pathology Order BELOW Laboratory test 04/14/2019 [facility] Stool Culture SEE RESULT 2, 3 finding BELOW Iron/Uibc/Tibc/% 03/25/2019 [facility] Iron-Total <pending> Sat Iron-Uibc <pending> Iron Binding Capacity Mass/Vol <pending> % Iron Saturation <pending> 1 SEE RESULT BELOW Name: KINZA NINA : [address]: Ria Carty DO Acct: [id number] Unit: [id number] AGE: 49 Location: [place] [address] Re04/16/19 SEX: F Status: ADM IN SPEC: [id number] [place]: 04/16/19- SUBM DR: Paras Callejas DO REQ: [id number] RECD: 04/16/19 STATUS: GARETH PYLE DR: Sarah Beth Rodríguez DO _ ORDERED: LEVEL 4/3 FINAL DIAGNOSIS 1. Small bowel, duodenum, biopsy: -- Small bowel mucosa with normal villous architecture and no significant pathologic abnormality. -- No villous blunting or evidence of increased lamina propria lymphoplasmacytic infiltrate. 2. Stomach, polyp, biopsy: -- Superficial fundic gland mucosa with reactive foveolar hyperplasia. -- No dysplasia identified. 3. Distal esophagus, biopsy: -- Gastroesophageal transition zone mucosa with mild reflux esophagitis with focal acute inflammation. -- Reactive glandular and squamous epithelial changes. -- No goblet cell/intestinal metaplasia or dysplasia identified. CLINICAL HISTORY Abdominal pain POST-OPERATIVE DIAGNOSIS EGD: esophagus - normal; biopsy; gastric - mild antral gastritis; biopsy; duodenum - normal; narrowing CONTINUED ON NEXT PAGE DEPARTMENT OF PATHOLOGY, [address] [place] [address] Diogenes Hernandez M.D. Director [facility] # [id number] GROSS DESCRIPTION 1. The specimen is received in formalin labeled, Biopsy Small Bowel, and consists of a 0.5 by up to 0.5 x 0.1 cm aggregate of ramos-pink irregular soft tissue fragments which is submitted entirely in one cassette. 2. The specimen is received in formalin labeled, Biopsy Gastric Polyp, and consists of a 0.2 x 0.2 by up to 0.2 cm ramos-pink polypoid soft tissue fragment which is submitted entirely in one cassette. 3. The specimen is received in formalin labeled, Biopsy Distal Esophagus, and consists of a 0.4 by a 0.3 x 0.2 cm ramos-pink irregular soft tissue fragment which is submitted entirely in one cassette. Signed by and Reported on: Diogenes Hernandez MD 07/05 1245 END OF REPORT DEPARTMENT OF PATHOLOGY, [address] [place] [address] Diogenes Hernandez M.D. Director [facility] # [id number] 2 Verbal to MARY GRIMALDO by [id number] at 0853 on 04/16/19. 3 SEE RESULT BELOW Name: KINZA NINA : [address]: Nancy STAPLES Acct: [id number] Unit: [id number] AGE: 49 Location: [facility] Re04/14/19 SEX: F Status: REG REF SPEC: [id number] [place]: 04/14/19-[address]: Nancy STAPLES REQ: [id number] RECD: 04/15/19 STATUS: COMP _ SOURCE: STOOL SPDESC: ORDERED: Stool Culture, O P: Giar/Crypt COMMENTS: Verbal to MARY GRIMALDO by [id number] at 0847 on 04/16/19. Procedure Result Reported Site Stool Culture Final 04/17/19- 1122 ML Result No enteric pathogens isolated Testing for Salmonella, Shigella, Aeromonas, Plesiomonas, Yersinia and Campylobacter are included in a Stool Culture. Vibrio spp not routinely tested for in a stool culture. If testing is desired, please request specifically when placing test order. Sensitivities not routinely performed on stool isolates, as antibiotics may prolong the carriage rate of bacteria. Please contact the microbiology lab if sensitivities are required. Shiga Toxin 1 2 Final 04/16/19- 1447 ML Organism 1 Negative Shiga Toxin 1 2 Immunochromatographic Assay. As with all diagnostic procedures, the laboratory results obtained should be used in conjunction with other clinical information available to the physician, including confirmation by another method, as applicable. CONTINUED ON NEXT PAGE DEPARTMENT OF PATHOLOGY, [address] [place] [address] Diogenes Hernandez M.D. Director [facility] # [id number] Patient: KINZA NINA [id number] (Continued) Specimen: [id number] Collected: 04/14/19-1599 Received: 04/15/19 (Continued) Procedure Result Reported Site Shiga Toxin 1 2 Final (continued) 04/16/19- 1447 O P: Giardia/Cryptospor Screen Final 04/16/19- 145 ML Organism 1 Neg Cryptosporidium/Giardia Giardia and cryptosporidium antigen testing performed by enzyme immunoassay. If patient is immunocompromised or has traveled to or is from a developing country, a full ova and parasite exam with microscopic (OPMIC) is recommended. All samples will be held 21 days in case full ova and parasite testing is requested. Contact the Microbiology Department at [phone]. TEST LIMITATIONS: As with all diagnostic procedures, the results obtained should be used in conjunction with other clinical information available to the physician, including confirmation by another method. Negative results can occur in samples containing antigen below lower limits of detection of the assay. One negative specimen does not rule out the possibility of a parasitic infection. To improve detection it is recommended that three specimens be collected on separate days over a period of not more than seven days. The use of colonic washes, aspirates or other diluted sample types has not been established and could affect the performance of the assay. Stool samples contaminated with an oily or particulate base (eg. Barium, mineral oil etc.) could interfere with the test and are not recommended. * ML - Main Lab . END OF REPORT DEPARTMENT OF PATHOLOGY, [address] [place] [address] Diogenes Hernandez M.D. Director [facility] # [id number] Procedures Description No Information Available Medical Devices Description No Information Available Encounters Description No Information Available Assessments Date Code Description Provider 04/14/2019 R10.84 Generalized abdominal pain Nancy Hawthorne PA-C 04/14/2019 R11.2 Nausea with vomiting, unspecified BERRY Dow 04/14/2019 R19.7 Diarrhea, unspecified Nancy Hawthorne PA-C 04/14/2019 K92.1 Melena Nancy Hawthorne PA-C 04/14/2019 K62.5 Hemorrhage of anus and rectum Nancy Hawthorne PA-C 04/14/2019 Z80.0 Family history of malignant neoplasm of Nancy Hawthorne PA-C digestive organs Plan of Treatment No Information Available Functional Status Description No Information Available Mental Status Description No Information Available Referrals Description No Information Available
[2019-06-27 21:02] LABS: ALT 19 U/L (7-52); AST 20 U/L (13-39); Albumin 3.9 g/dL (3.2-5.2); Albumin/Globulin Ratio 1.5 (1-3); Alkaline Phosphatase 50 U/L (34-104); Anion Gap 6 mmol/L (2-11); BUN/Creatinine Ratio 21.8 (8-20); Blood Urea Nitrogen 17 mg/dL (6-24); C Reactive Protein < 1.00 mg/L (<8.01); CO2 Carbon Dioxide 25 mmol/L (22-32); Calcium 8.5 mg/dL (8.6-10.3); Chloride 105 mmol/L (101-111); EGFR African American 94.2 (>60); EGFR Non-African American 77.9 (>60); Globulin 2.6 g/dL (2-4); Glucose 84 mg/dL (70-100); Potassium 3.8 mmol/L (3.5-5.0); Sodium 136 mmol/L (135-145); Total Protein 6.5 g/dL (6.4-8.9)
[2019-06-27] MEDS ORDERED: Al Hydrox/Mg Hydrox/Simet LIQ* 30 ML UDC PO ONE (22:06)
[2019-06-27] MEDS ORDERED: Lidocaine 2% VISCOUS* 15 ML UDC PO ONE (22:06)
[2019-06-27 22:12] LABS: Urine Appearance Cloudy; Urine Bilirubin Negative (Negative); Urine Blood 1+ (Negative); Urine Color Yellow; Urine Glucose 1+(50 mg/dL) (Negative); Urine Ketones Trace (Negative); Urine Nitrite Negative (Negative); Urine Protein Negative (Negative); Urine Specific Gravity 1.011 (1.010-1.030); Urine Urobilinogen Negative (Negative)
[2019-06-27 22:14] LABS: Urine Bacteria Absent (Absent); Urine Red Blood Cell Trace(0-2/hpf) (Absent); Urine Squamous Epithelial Cell Present (Absent); Urine White Blood Cell Trace(0-5/hpf) (Absent)
[2019-06-28] MEDS ORDERED: Acetaminophen TAB* 325 MG PO PRN (00:12)
[2019-06-28] MEDS ORDERED: Polyethylene Glycol 3350* 17 GM PACKET PO PRN (00:14)
[2019-06-28] MEDS ORDERED: Al Hydrox/Mg Hydrox/Simet LIQ* 30 ML UDC PO PRN (00:16)
[2019-06-28] MEDS: Ondansetron INJ* 2 MG/ML VIAL IV PRN ×3 (02:13→18:39)
[2019-06-28] MEDS: HYDROmorphone INJ* 0.5 MG/0.5 ML SYRINGE IV SLOW PU PRN ×4 (02:14→18:33)
[2019-06-28] MEDS: hydrOXYzine HCL TAB* 25 MG PO PRN (02:15)
[2019-06-28] MEDS: Enoxaparin(*) 40 MG/0.4 ML SYR SUBCUT SCH ×2 (02:15→20:12)
[2019-06-28] MEDS: traZODone TAB* 100 MG PO PRN ×2 (02:17→20:12)
[2019-06-28] MEDS: Gabapentin CAP(*) 300 MG PO SCH ×3 (02:17→20:11)
[2019-06-28] MEDS: LORazepam TAB(*) 1 MG PO PRN ×3 (02:17→20:11)
[2019-06-28] MEDS: NS 0.9% 1000 ML** 1,000 ML IV SCH ×3 (02:18→14:05)
--- NOTE | 2019-06-28 04:02 | HP ---
HISTORY AND PHYSICAL: DATE OF ADMISSION: 06/28/19 PRIMARY CARE PROVIDER: BEL Seals ENROLLED AGENT: Roger Ivan, the patient's partner. CODE STATUS: Full. SOURCE OF INFORMATION: HPI is obtained from the patient. She is a fair historian. CHIEF COMPLAINT: Abdominal pain. HISTORY OF PRESENT ILLNESS: This is a 49-year-old female with a past medical history of anxiety, on chronic benzodiazepines; ADD, on chronic stimulants; history of nephrolithiasis; fibromyalgia; chart history of chronic pancreatitis , which she reports was diagnosed in 2010, which went into remission for several years and now with return of chronic ongoing abdominal pain with an extensive workup that started roughly in March 2019 who is presenting tonight with chronic intractable abdominal pain. The patient reports that she was in her usual state of health with normal bowel movements until last night when she started having acute epigastric and left upper quadrant chronic abdominal pain with no radiation, made worse with food, with no alleviation. She has actually not been on chronic opiates for her abdominal pain at this point. She reports that she had associated nausea, but no productive emesis. She has a history of chronic intermittent constipation followed by diarrhea, although she reports her last bowel movement was this morning and it was normal. The patient tried hot packs, rest, and holding diet at home, although her pain persisted to the point where she decided to present to the emergency room. Briefly, her abdominal pain started in March of 2019 with the background of this chronic pancreatitis. She had several visits to hospitalizations throughout the regional area and had a reported CT scan with possible narrow angle SMA in March at [facility]. She presented to our hospital system in March of 2019 where she got an EGD and colonoscopy in April of [address] Callejas that showed mild antral gastritis, but otherwise normal; had a routine colonoscopy in 2018 that showed poor prep but no localizing lesions to the prior correlating CT scan to suggest colitis or other inflammatory bowel disease. She was discharged with [facility], which she did not follow up with and also to follow up with [facility] for [facility] imaging such as ERCP, she reports she is following with [facility] in July of 2019 for possible ERCP to further investigate whether this could be flare or return of her already previously diagnosed chronic pancreatitis ( which was thought to be from "protein overdose" and she denies alcohol or gallstones at that time) or to rule out other more difficult diagnosis such as SMA. EMERGENCY ROOM COURSE: In the emergency room, her vital signs were stable. Her labs are normal. Her pain was unable to be controlled with IV Dilaudid 1 mg x2. She also requested IV Benadryl with her Dilaudid. She also got lidocaine and GI cocktail. She was given 2 L of fluids and 8 mg of Zofran, and after several hours, she still reported that her pain was intractable and she was unable to manage it at home, and thus, the hospitalist team was asked to admit the patient for intractable pain and observation. PAST MEDICAL HISTORY: Anxiety, on chronic benzodiazepines; history of nephrolithiasis; fibromyalgia, on pain management; ADD, on stimulants; presumed postmenopausal status post HEAVEN/BSO, on hormone replacement therapy; chart history of chronic pancreatitis; and chronic abdominal pain that has reemerged since March of 2019. PAST SURGICAL HISTORY: History of , status post HEAVEN/BSO, status post oneida, status post tonsillectomy, status post breast reduction with breast augmentation. MEDICATIONS: 1. Acetaminophen 650 mg p.o. q.6 hours p.r.n. 2. Estradiol 1 mg p.o. daily. 3. Ferrous sulfate 325 mg p.o. daily. 4. Progesterone 200 mg p.o. q.h.s. 5. Soma tabs 350 mg p.o. t.i.d. 6. Docusate 100 mg p.o. b.i.d. 7. Gabapentin 600 mg p.o. b.i.d. 8. Lorazepam 2 mg p.o. t.i.d. p.r.n. 9. Methylphenidate 20 mg p.o. b.i.d. 10. Omeprazole 20 mg p.o. daily. 11. Polyethylene glycol 17 g p.o. b.i.d. p.r.n. 12. Senna tab 1 tab p.o. daily p.r.n. 13. Sertraline 200 mg p.o. daily. 14. Trazodone 200 mg p.o. q.h.s. p.r.n. ALLERGIES: SUMATRIPTAN, DIPHENHYDRAMINE ORAL but reports she can take IV Benadryl, MORPHINE, COMPAZINE, TRIPTANS, KETOROLAC. FAMILY HISTORY: Mother has a history of breast cancer. Father has a history of coronary artery disease as well as colon cancer. 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 She lives at home with her partner and children. She reports she is a lifetime non-tobacco, non-alcohol or illicit user. REVIEW OF SYSTEMS: Negative for fevers, chills, or general malaise. Negative for headaches, sore throat, vision changes. Cardiovascular: Negative for chest pain, palpitations, or orthopnea. Respiratory: Negative for shortness of breath, cough, or pleuritic chest pain. GI: Positive for abdominal pain and nausea. Negative for vomiting, diarrhea or constipation, hematemesis, melena, change in stool color or consistency. : Negative for dysuria or hematuria. Musculoskeletal: Negative for new myalgias or arthralgias. Has chronic pain secondary to her fibromyalgia. Skin: Negative for any rashes or lesions. Neurologic: Negative for focal weakness or numbness. Psychiatric: Negative for worsened anxiety or depression, suicide attempts. Endocrine: Negative for polyuria or polydipsia. Heme/Lymph: Negative for easy bruising, bleeding, or lymphadenopathy. PHYSICAL EXAMINATION GENERAL APPEARANCE: This is a well-appearing thin woman, lying in bed, obviously sedated with pinpoint pupils, who is awake, alert, and responsive x3, although can easily drift off. VITAL SIGNS: At the time of physical exam, blood pressure is 91/58, heart rate 60, oxygen saturation is 92% on room air. HEENT: Pupils are pinpoint, but reactive. Extraocular muscles are intact. Sclerae are anicteric. Oropharynx is dry with no other obvious lesions. NECK: Supple with no supraclavicular or cervical lymphadenopathy. RESPIRATORY: Lungs are clear to auscultation bilaterally. CARDIAC: Regular rate and rhythm with no murmurs, rubs, or gallops. Belly is soft, nondistended, tender to palpation in left upper quadrant and epigastric without rebound, mild voluntary guarding. MUSCULOSKELETAL: She moves all 4 limbs spontaneously. She has no edema. She is otherwise warm and well perfused. NEURO: Cranial nerves II through XII are intact. She has no focal neurologic deficits. PSYCHIATRIC: The patient is cooperative and at times a guarded historian, although largely seems partially sedated from emergency room medications. DIAGNOSTIC STUDIES/LAB DATA: White blood cell count 6.7, hemoglobin 12, hematocrit 37, platelets 286. BMP with sodium 136, potassium 3.6, chloride 105 , carbon dioxide 25, anion gap 6, BUN 17, creatinine 0.78, glucose 84. AST 20, ALT 19, alk phos 50. Albumin 3.9, lipase 80. UA is done, it is positive for squamous cells and trace blood consistent with contaminant. No imaging or EKG is done. ASSESSMENT AND PLAN: This is a 49-year-old female with a past medical history of anxiety, on chronic benzodiazepines; attention deficit disorder, on stimulants; fibromyalgia, on pain management; chart history of a distant diagnosis of chronic pancreatitis thought to be secondary to "protein overdose" who has had ongoing chronic abdominal pain since March of 2019 that had actually remitted in the month of May, who returns with left upper quadrant nonspecific pain with workup as mentioned in the HPI. Her differential diagnosis for this includes gastroesophageal reflux disease, dyspepsia, possible chronic pancreatitis as lipase levels do not need to be necessarily elevated, although this would be uncommon without evidence of exocrine dysfunction and the patient does not have reported history of diarrhea. There was a question whether she had superior mesenteric artery syndrome which was difficult to diagnose, although her history to be consistent with us given her intermittent relapsing in remitting nature of her pain, and finally, there is a possibility that her pain is somatized and her underlying anxiety, depression, and fibromyalgia may be represented through chronic pain, although she is not on current long-term opiate pain management and no clear secondary gain can be identified in her seeking this hospitalization. She has adequate followup in terms of her outpatient diagnostics and is scheduled for an ERCP in July with [facility] and it seems reasonable in this hospitalization to focus on her pain control with clear parameters. 1. Abdominal pain with differential as per above. She may be started on low- dose IV hydromorphone 0.5 mg. She is already quite sedated on the 1 mg, does seem reasonable to scale back, she is advised of this, and we will put for a max 3 doses in the hopes that she will be able transfer to oral pain medications for a limited amount on discharge if she is able to tolerate a clear liquid diet. We placed her on IV fluids at 150 cc per hour, p.r.n. Zofran , Tylenol as needed, also resume her home medications including her Ativan. Of note, the patient requests IV Benadryl and concordant administration with her IV Dilaudid, and it was made very clear that there is no clinical indication for this and she may take oral hydroxyzine for associated itching as needed. We will offer PPI and p.r.n. GI cocktail as needed if any component of esophagitis or gastroesophageal reflux disease is lending to this recurrence of pain. 2. Anxiety. Her home medications sertraline, Ativan, and trazodone are continued. Her [employer] is printed and checked and no concerning findings. 3. Attention deficit disorder. Continue her home stimulants. 4. Fibromyalgia. She is on Soma and gabapentin, which will be continued. 5. Hormone replacement therapy. We will hold on hormones as they are non- formulary and can resume on discharge. 6. DVT prophylaxis. Place the patient on low molecular weight heparin. 7. Code status. Full. 8. Disposition. The patient stable for admission to observation to [address] [place] [address] for continued pain control with clear parameters and the hope to transition from clear liquid diet to more substantial diet on 06/29/19 in concordance with switching to oral pain medications and hopeful discharge home and she has adequate followup with outpatient GI. TIME SPENT: Forty five minutes was spent in the planning of this admission, over a half of that spent directly at the bedside with the patient providing direct patient care. Plan of care is discussed with the patient, she has no further questions. [id number]/[facility] #: [id number] INES
[2019-06-28] MEDS ORDERED: oxyCODONE/Acetamin 5/325 MG* TAB PO PRN ×2 (08:30)
[2019-06-28] MEDS: Sertraline* 100 MG TAB PO SCH (08:35)
[2019-06-28] MEDS: Senna TAB 8.6 mg* TAB PO SCH (08:36)
[2019-06-28] MEDS: Pantoprazole TAB * 40 MG TAB PO SCH (08:36)
[2019-06-28] MEDS: Docusate CAP* 100 MG PO SCH ×2 (08:36→20:11)
[2019-06-28] MEDS ORDERED: HYDROcodone/ACETAMIN 5-325 MG* 1 TAB PO PRN (10:19)
[2019-06-28] MEDS: HYDROcodone/ACETAMIN 5-325 MG* 1 TAB PO PRN ×3 (10:44→20:11)
[2019-06-28] MEDS ORDERED: NS 0.9% 1000 ML** 1,000 ML IV ONE ×2 (11:24→16:14)
[2019-06-28] MEDS: Sucralfate TAB* 1 GM PO SCH ×2 (13:28→16:01)
[2019-06-28] MEDS ORDERED: Methylphenidate TAB* 10 MG PO SCH (14:00)
--- NOTE | 2019-06-28 18:10 | PN ---
Subjective Date of Service: 06/28/19 Interval History: Feels fatigued, generally unwell. Stabbing pain to epigastric and left upper quadrant worse with eating. Nauseated without vomiting. Family History: Unchanged from Admission Social History: Unchanged from Admission Past Medical History: Unchanged from Admission Objective Active Medications: Acetaminophen (Tylenol Tab*) 650 mg PO Q6H PRN PRN Reason: PAIN - MILD Hydrocodone Bitart/Acetaminophen ([place] 5-325 Tab*) 1 tab PO Q4H PRN PRN Reason: PAIN - MODERATE Hydrocodone Bitart/Acetaminophen ([place] 5-325 Tab*) 2 tab PO Q4H PRN PRN Reason: PAIN - SEVERE Last Admin: 06/28/19 16:34 Dose: 2 tab Al Hydrox/Mg Hydrox/Simethicone (Maalox Plus*) 30 ml PO Q6H PRN PRN Reason: DYSPEPSIA Carisoprodol (Soma Tab*) 350 mg PO TID PRN PRN Reason: PAIN Docusate Sodium (Colace Cap*) 100 mg PO BID [facility] Last Admin: 06/28/19 08:36 Dose: 100 mg Enoxaparin Sodium (Lovenox(*)) 40 mg SUBCUT BEDTIME [facility] Last Admin: 06/28/19 02:15 Dose: 40 mg Gabapentin (Neurontin Cap(*)) 600 mg PO BID [facility] Last Admin: 06/28/19 08:36 Dose: 600 mg Hydromorphone HCl (Dilaudid Inj*) 0.25 mg IV SLOW PU Q4H PRN PRN Reason: PAIN - SEVERE Last Admin: 06/28/19 14:05 Dose: 0.25 mg Hydroxyzine HCl (Atarax Tab*) 25 mg PO Q4H PRN PRN Reason: Itching Last Admin: 06/28/19 02:15 Dose: 25 mg Sodium Chloride (Ns 0.9% 1000 Ml) 1,000 mls @ 150 mls/hr IV PER RATE [facility] Last Admin: 06/28/19 14:05 Dose: 150 mls/hr Lorazepam (Ativan Tab(*)) 2 mg PO TID PRN PRN Reason: ANXIETY Last Admin: 06/28/19 08:39 Dose: 2 mg Ondansetron HCl (Zofran Inj*) 4 mg IV Q4H PRN PRN Reason: NAUSEA Pantoprazole Sodium (Protonix Tab*) 40 mg PO DAILY [facility] Last Admin: 06/28/19 08:36 Dose: 40 mg Polyethylene Glycol/Electrolytes (Miralax*) 17 gm PO 0800,2100 PRN PRN Reason: CONSTIPATION Senna (Senokot 8.6 Mg Tab*) 1 tab PO DAILY [facility] Last Admin: 06/28/19 08:36 Dose: 1 tab Sertraline HCl (Zoloft*) 200 mg PO DAILY [facility] Last Admin: 06/28/19 08:35 Dose: 200 mg Sucralfate (Carafate*) 1 gm PO 0630,1100,1600 [facility] Last Admin: 06/28/19 16:01 Dose: 1 gm Trazodone HCl (Desyrel Tab*) 200 mg PO BEDTIME PRN PRN Reason: INSOMNIA Last Admin: 06/28/19 02:17 Dose: 200 mg Vital Signs - 8 hr 06/28/19 06/28/19 06/28/19 10:44 10:51 11:00 Temperature 97.3 F Pulse Rate 50 Respiratory 18 18 16 Rate Blood Pressure 80/48 (mmHg) O2 Sat by Pulse 95 Oximetry 06/28/19 06/28/19 06/28/19 13:16 14:05 15:33 Temperature 98.3 F Pulse Rate 60 Respiratory 18 17 16 Rate Blood Pressure 82/46 (mmHg) O2 Sat by Pulse 99 Oximetry 06/28/19 16:34 Temperature Pulse Rate Respiratory 17 Rate Blood Pressure (mmHg) O2 Sat by Pulse Oximetry Oxygen Devices in Use Now: None Appearance: This is a well developed woman, pale in appearance who looks generally unwell. Eyes: No Scleral Icterus, PERRLA Ears/Nose/Mouth/Throat: NL Teeth, Lips, Gums, Mucous Membranes Moist Neck: NL Appearance and Movements; NL JVP, Trachea Midline Respiratory: Symmetrical Chest Expansion and Respiratory Effort, Clear to Auscultation Cardiovascular: NL Sounds; No Murmurs; No JVD, RRR, No Edema Abdominal: NL Sounds; No Tenderness; No Distention Lymphatic: No Cervical Adenopathy Extremities: No Edema, No Clubbing, Cyanosis Skin: No Rash or Ulcers, No Nodules or Sclerosis Neurological: Alert and Oriented x 3 Lines/Tubes/Other Access: Clean, Dry and Intact Peripheral IV Result Diagrams: 06/27/19 20:30 06/27/19 20:30 Assess/Plan/Problems-Billing Assessment: This is a 49 year old female with a past medical history of chronic pancreatitis , ADD and nephrolithiasis who was admitted on 06/28/18 for abdominal pain. - Patient Problems (1) Abdominal pain Current Visit: No Status: Chronic Priority: Medium Onset Date: 04/06/14 Code(s): R10.9 - UNSPECIFIED ABDOMINAL PAIN SNOMED Code(s): 09170637 Comment: - Chronic abdominal pain, not likely SMA syndrome in view of constant nature of her pain since young without any nutritional problems. I feel this is more likely related to chronic pancreatitis. No bile duct or other inflammatory process involved as there is no leukocytosis and LFT's are normal. Denies recent NSAID use or alcohol intake. -Goal is to transition onto oral pain medication prior to discharge home. IV dilaudid and hydrocodone available. -Dr. Quijano consulted. Patient had an extensive work up in March 2019. He recommended an endoscopic ultrasound, which we cannot perform here. Patient already intended to see her GI in [place] for an MRCP in July, recommend she continue with this plan. -Noted CVA tenderness as well as +1 blood in the urine. Creatinine is normal. Due to her history of nephrolithiasis, ordered ultrasound of kidney's. (2) Anxiety Current Visit: No Status: Chronic Code(s): F41.9 - ANXIETY DISORDER, UNSPECIFIED SNOMED Code(s): 97437770 Comment: -Continue po lorazepam prn, sertraline, trazodone and atarax as per home regimen. (3) Hypotension Current Visit: Yes Status: Acute Comment: -Blood pressure consistently in the 80's today. Reported feeling lightheaded and fatigued. Bolused with a total of 2L NS. Looking back on trends, she tends to have a lower SBP, generally in the 90's. Will draw a cortisol level in the AM. (4) DVT prophylaxis Current Visit: No Status: Acute Code(s): Z29.9 - ENCOUNTER FOR PROPHYLACTIC MEASURES, UNSPECIFIED SNOMED Code(s): 695881217 Comment: -Continue enoxaparin. (5) Full code status Current Visit: Yes Status: Acute Code(s): Z78.9 - OTHER SPECIFIED HEALTH STATUS SNOMED Code(s): 958633336 Status and Disposition: Condition: Guarded. Disposition: Admit OBV to 4N. Attending: Joana Antonio
[2019-06-28] MEDS ORDERED: traZODone TAB* 100 MG PO SCH (21:00)
[2019-06-28 22:17] LABS: ABS Eosinophils 0.2 10^3/ul (0-0.6); ABS Lymphocytes 1.6 10^3/ul (1.0-4.8); ABS Monocytes 0.3 10^3/ul (0-0.8); ABS Neutrophils 1.2 10^3/ul (1.5-7.7); Eosinophil % 5.9 %; Hematocrit 29 % (35-47); Hemoglobin 9.9 g/dL (12.0-16.0); Mean Corpuscular HGB Conc 34 g/dL (31-36); Mean Corpuscular Hemoglobin 31 pg (27-31); Mean Corpuscular Volume 92 fL (80-97); Mean Platelet Volume 7.2 fL (7.4-10.4); Nucleated Red Blood Cells % 0.1; Platelet Count 214 10^3/uL (150-450); Red Blood Count 3.18 10^6 /uL (3.70-4.87); Red Cell Distribution Width 13 % (10-15); White Blood Count 3.3 10^3/uL (3.5-10.8)
[2019-06-28 22:32] LABS: BUN/Creatinine Ratio 12.3 (8-20); Calcium 7.4 mg/dL (8.6-10.3); EGFR African American 90.2 (>60); EGFR Non-African American 74.5 (>60); Potassium 3.9 mmol/L (3.5-5.0)
[2019-06-29] MEDS ORDERED: NS 0.9% 1000 ML** 1,000 ML IV ONE (00:17)
[2019-06-29] MEDS: NS 0.9% 1000 ML** 1,000 ML IV SCH (02:12)
[2019-06-29 05:28] LABS: BUN/Creatinine Ratio 9.3 (8-20); Calcium 7.1 mg/dL (8.6-10.3); EGFR African American 98.6 (>60); EGFR Non-African American 81.5 (>60); Potassium 3.9 mmol/L (3.5-5.0)
[2019-06-29] MEDS: Sertraline* 100 MG TAB PO SCH (08:41)
[2019-06-29] MEDS: Senna TAB 8.6 mg* TAB PO SCH (08:41)
[2019-06-29] MEDS: Docusate CAP* 100 MG PO SCH ×2 (08:41→20:42)
[2019-06-29] MEDS: Pantoprazole TAB * 40 MG TAB PO SCH (08:43)
[2019-06-29] MEDS: HYDROcodone/ACETAMIN 5-325 MG* 1 TAB PO PRN ×3 (08:43→19:08)
[2019-06-29] MEDS: Gabapentin CAP(*) 300 MG PO SCH ×2 (08:43→20:41)
[2019-06-29] MEDS ORDERED: Hydrocortisone INJ* 100 MG/2 ML VIAL (in pyxis) IV ONE (08:48)
[2019-06-29] MEDS: LORazepam TAB(*) 1 MG PO PRN ×2 (08:48→20:49)
--- NOTE | 2019-06-29 09:13 | PN ---
Subjective Date of Service: 06/29/19 Interval History: She states she has not slept well in 4 days. Continues to feel intermittent 10/ 10 sharp pain to epigastric/left upper quadrant pain accompanied by nausea, and fatigued. She feels puffy everywhere from IV fluids. Denies chest pain, shortness of breath. States she feels she is not voiding as well as she normally does. Family History: Unchanged from Admission Social History: Unchanged from Admission Past Medical History: Unchanged from Admission Objective Active Medications: Acetaminophen (Tylenol Tab*) 650 mg PO Q6H PRN PRN Reason: PAIN - MILD Hydrocodone Bitart/Acetaminophen ([place] 5-325 Tab*) 1 tab PO Q4H PRN PRN Reason: PAIN - MODERATE Hydrocodone Bitart/Acetaminophen ([place] 5-325 Tab*) 2 tab PO Q4H PRN PRN Reason: PAIN - SEVERE Last Admin: 06/29/19 08:43 Dose: 2 tab Al Hydrox/Mg Hydrox/Simethicone (Maalox Plus*) 30 ml PO Q6H PRN PRN Reason: DYSPEPSIA Carisoprodol (Soma Tab*) 350 mg PO TID PRN PRN Reason: PAIN Docusate Sodium (Colace Cap*) 100 mg PO BID [facility] Last Admin: 06/29/19 08:41 Dose: 100 mg Enoxaparin Sodium (Lovenox(*)) 40 mg SUBCUT BEDTIME [facility] Last Admin: 06/28/19 20:12 Dose: 40 mg Gabapentin (Neurontin Cap(*)) 600 mg PO BID [facility] Last Admin: 06/29/19 08:43 Dose: 600 mg Hydrocortisone Sodium Succinate (Solu-Cortef*) 50 mg IV Q6H [facility] Hydromorphone HCl (Dilaudid Inj*) 0.25 mg IV SLOW PU Q4H PRN PRN Reason: PAIN - SEVERE Last Admin: 06/28/19 18:33 Dose: 0.25 mg Hydroxyzine HCl (Atarax Tab*) 25 mg PO Q4H PRN PRN Reason: Itching Last Admin: 06/28/19 02:15 Dose: 25 mg Sodium Chloride (Ns 0.9% 1000 Ml) 1,000 mls @ 150 mls/hr IV PER RATE [facility] Last Admin: 06/29/19 02:12 Dose: 150 mls/hr Lorazepam (Ativan Tab(*)) 2 mg PO TID PRN PRN Reason: ANXIETY Last Admin: 06/29/19 08:48 Dose: 2 mg Ondansetron HCl (Zofran Inj*) 4 mg IV Q4H PRN PRN Reason: NAUSEA Last Admin: 06/28/19 18:39 Dose: 4 mg Pantoprazole Sodium (Protonix Tab*) 40 mg PO DAILY [facility] Last Admin: 06/29/19 08:43 Dose: 40 mg Polyethylene Glycol/Electrolytes (Miralax*) 17 gm PO 0800,2100 PRN PRN Reason: CONSTIPATION Senna (Senokot 8.6 Mg Tab*) 1 tab PO DAILY [facility] Last Admin: 06/29/19 08:41 Dose: 1 tab Sertraline HCl (Zoloft*) 200 mg PO DAILY [facility] Last Admin: 06/29/19 08:41 Dose: 200 mg Trazodone HCl (Desyrel Tab*) 200 mg PO BEDTIME PRN PRN Reason: INSOMNIA Last Admin: 06/28/19 20:12 Dose: 200 mg Vital Signs - 8 hr 06/29/19 06/29/19 06/29/19 03:15 08:43 08:48 Temperature 97.8 F Pulse Rate 52 Respiratory 18 16 16 Rate Blood Pressure 82/50 (mmHg) O2 Sat by Pulse 96 Oximetry Oxygen Devices in Use Now: None Appearance: Pale, well developed woman resting in bed. Eyes: No Scleral Icterus, PERRLA Ears/Nose/Mouth/Throat: NL Teeth, Lips, Gums, Clear Oropharnyx, Mucous Membranes Moist Neck: NL Appearance and Movements; NL JVP, Trachea Midline Respiratory: Symmetrical Chest Expansion and Respiratory Effort, Clear to Auscultation Cardiovascular: NL Sounds; No Murmurs; No JVD, RRR, No Edema Abdominal: - - Soft, distended, tender to bilateral upper quadrants, worse in left upper. Lymphatic: No Cervical Adenopathy Extremities: No Clubbing, Cyanosis, - - Generalized edema Skin: No Rash or Ulcers, No Nodules or Sclerosis Neurological: Alert and Oriented x 3 Lines/Tubes/Other Access: Clean, Dry and Intact Peripheral IV Result Diagrams: 06/28/19 22:12 06/29/19 04:54 Assess/Plan/Problems-Billing Assessment: This is a 49 year old female with a past medical history of chronic pancreatitis , ADD and nephrolithiasis who was admitted on 06/28/18 for abdominal pain. - Patient Problems (1) Adrenal crisis Current Visit: Yes Status: Acute Code(s): E27.2 - ADDISONIAN CRISIS SNOMED Code(s): 363418639 Comment: -Cortisol level 0.95, nauseated, fatigued, abdominal pain, hypotension. Will bolus 100mg IV hydrocortisone with 50mg IV Q6H to follow until her pain eases and is able to eat better. -Recheck cortisone in AM. (2) Abdominal pain Current Visit: No Status: Chronic Priority: Medium Onset Date: 04/06/14 Code(s): R10.9 - UNSPECIFIED ABDOMINAL PAIN SNOMED Code(s): 21842829 Comment: - Chronic abdominal pain, not likely SMA syndrome in view of constant nature of her pain since young without any nutritional problems. I feel this is more likely related to chronic pancreatitis. No bile duct or other inflammatory process involved as there is no leukocytosis and LFT's are normal. Denies recent NSAID use or alcohol intake. -Goal is to transition onto oral pain medication prior to discharge home. IV dilaudid and hydrocodone available. -Dr. Quijano consulted. Patient had an extensive work up in March 2019. He recommended an endoscopic ultrasound, which we cannot perform here. Patient already intended to see her GI in [place] for an MRCP in July, recommend she continue with this plan. -Renal ultrasound negative. (3) Anxiety Current Visit: No Status: Chronic Code(s): F41.9 - ANXIETY DISORDER, UNSPECIFIED SNOMED Code(s): 63067488 Comment: -Continue po lorazepam prn, sertraline, trazodone and atarax as per home regimen. (4) Hypotension Current Visit: Yes Status: Acute Comment: -Blood pressures continue to be in the 80's. Ordered one time dose of midodrine. Attributing this to adrenal crisis, IV hydrocortisone ordered. (5) DVT prophylaxis Current Visit: No Status: Acute Code(s): Z29.9 - ENCOUNTER FOR PROPHYLACTIC MEASURES, UNSPECIFIED SNOMED Code(s): 400549120 Comment: -Continue enoxaparin. (6) Full code status Current Visit: Yes Status: Acute Code(s): Z78.9 - OTHER SPECIFIED HEALTH STATUS SNOMED Code(s): 256284211 Status and Disposition: Condition: Guarded. Disposition: Admit OBV to 4N. Attending: Irais La
[2019-06-29] MEDS: HYDROmorphone INJ* 0.5 MG/0.5 ML SYRINGE IV SLOW PU PRN ×2 (11:19→11:26)
[2019-06-29] MEDS: ESTRADIOL 1 MG PO SCH (14:12)
[2019-06-29] MEDS: hydrOXYzine HCL TAB* 25 MG PO PRN (14:14)
[2019-06-29] MEDS: Hydrocortisone INJ* 100 MG/2 ML VIAL (in pyxis) IV SCH ×2 (14:56→20:41)
--- NOTE | 2019-06-29 17:18 | CONS ---
CC: BEL Seals; Dr. Callejas * CONSULTATION REPORT: DATE OF CONSULT: 06/29/19 REFERRING PROVIDER: BEL Seals. OUTPATIENT BASEBALL WINDER: Dr. Callejas. INDICATION: Abdominal pain. HISTORY OF PRESENT ILLNESS: Ms. Nina is a 49-year-old female well known to the GI service. She was recently discharged from the hospital in March of 2019 with a diagnosis of possible chronic pancreatitis. The patient was referred to [facility] and did see Dr. Alarcon at [facility]. He was unsure as to an etiology for her abdominal pain. He did want her to see a surgeon to discuss superior mesenteric artery syndrome. Additionally, he wanted to repeat her colonoscopy given the fact that her previous colonoscopy was a poor prep and to perform an ERCP. The patient has not arranged for any of these yet. She states that a few days ago her typical pain became much worse. It is located in the left upper quadrant and epigastric area. It was made worse by eating. She did have nausea; however, no vomiting. No change in her bowel habits, no blood in the stool. She is having daily bowel movements. She presented to the emergency room on Saturday and was admitted for chronic abdominal pain. She states that her pain now has worsened. She also tells me that she was recently found to have adrenal insufficiency and is being worked up for that. PAST MEDICAL HISTORY: Significant for chronic pain syndrome, fibromyalgia, HLA- B27 positivity, self-reported pancreatitis, question of SMA syndrome, anxiety, kidney stones. PAST SURGICAL HISTORY: Includes breast reduction, x3, hysterectomy, cholecystectomy. MEDICATIONS UPON ADMISSION: Include: 1. Acetaminophen. 2. Estradiol. 3. Iron. 4. Progesterone. 5. Soma. 6. Colace. 7. Gabapentin. 8. Lorazepam. 9. Omeprazole. 10. MiraLAX. 11. Senna. 12. Sertraline. 13. Trazodone. ALLERGIES: SUMATRIPTAN, ORAL BENADRYL, MORPHINE, COMPAZINE, TRIPTANS, and KETOROLAC. FAMILY HISTORY: Positive for colorectal cancer in her father. SOCIAL HISTORY: She is on disability. She lives at home. No alcohol. No tobacco. REVIEW OF SYSTEMS: Twelve systems were reviewed and other than that mentioned in the HPI were unremarkable. PHYSICAL EXAM: Temperature is 98.2, blood pressure is 91/59, pulse is 62, respiratory rate of 16, O2 sat is 97% on room air. General: Well-appearing female, in no apparent distress, alert, oriented, pleasant, fluent. HEENT: Mucous membranes are moist without lesions, ulcers, or exudate. Neck is supple. Trachea is midline. Head is normocephalic, atraumatic. Heart: Regular rate and rhythm. Lungs: Clear to auscultation. Abdomen is soft, nondistended, tender throughout, but more so in the epigastrium and left upper quadrant. No rebound. No guarding. No masses were palpated. Skin is warm and dry. LABORATORY DATA: Of note, sodium is 139, chloride of 116, glucose of 102. LFTs from 2 days ago were completely normal. Hemoglobin is 9.9, platelets of 214. ASSESSMENT AND PLAN: This is a pleasant 49-year-old female who has chronic abdominal pain. She is being worked up at [facility] for this. They suspect potentially superior mesenteric artery syndrome versus sphincter of Oddi syndrome. She does need to call them to rearrange her appointments with them. She has seen Dr. Alarcon there already. Additionally, there is a question of whether or not she has adrenal insufficiency, she is being worked up for this. There can be gastrointestinal manifestations such as nausea, vomiting, and abdominal pain. This could be contributing to some of her symptoms. We will await further elucidation and workup of her adrenal insufficiency and continue to follow along. [id number]/CPS #: [id number] MTDD
[2019-06-29] MEDS: Enoxaparin(*) 40 MG/0.4 ML SYR SUBCUT SCH (20:43)
[2019-06-29] MEDS: traZODone TAB* 100 MG PO PRN (20:50)
[2019-06-29] MEDS: Carisoprodol TAB* 350 MG PO PRN (22:02)
[2019-06-30] MEDS: HYDROcodone/ACETAMIN 5-325 MG* 1 TAB PO PRN ×4 (01:05→19:12)
[2019-06-30] MEDS: Hydrocortisone INJ* 100 MG/2 ML VIAL (in pyxis) IV SCH ×4 (03:17→20:37)
[2019-06-30] MEDS: Carisoprodol TAB* 350 MG PO PRN ×3 (05:21→19:12)
[2019-06-30 06:40] LABS: Hematocrit 35 % (35-47); Hemoglobin 12.1 g/dL (12.0-16.0); Mean Corpuscular HGB Conc 35 g/dL (31-36); Mean Corpuscular Hemoglobin 32 pg (27-31); Mean Corpuscular Volume 91 fL (80-97); Mean Platelet Volume 8.1 fL (7.4-10.4); Platelet Count 211 10^3/uL (150-450); Red Blood Count 3.82 10^6 /uL (3.70-4.87); Red Cell Distribution Width 13 % (10-15); White Blood Count 6.9 10^3/uL (3.5-10.8)
[2019-06-30 06:57] LABS: Albumin 3.6 g/dL (3.2-5.2); Albumin/Globulin Ratio 1.6 (1-3); BUN/Creatinine Ratio 7.8 (8-20); Calcium 8.5 mg/dL (8.6-10.3); EGFR African American 95.6 (>60); Globulin 2.3 g/dL (2-4); Potassium 3.4 mmol/L (3.5-5.0); Total Bilirubin 0.2 mg/dL (0.2-1.0); Total Protein 5.9 g/dL (6.4-8.9)
[2019-06-30 07:50] LABS: ABS Lymphocytes 0.7 10^3/ul (1.0-4.8); ABS Monocytes 0.1 10^3/ul (0-0.8); ABS Neutrophils 6.1 10^3/ul (1.5-7.7); Lymphocyte % 9.7 %; Nucleated Red Blood Cells % 0.1
[2019-06-30] MEDS ORDERED: Potassium Chlor TAB* 20 MEQ TAB.ER PO ONE (08:38)
[2019-06-30] MEDS ORDERED: NS 0.9% 1000 ML** 1,000 ML IV SCH (09:00)
[2019-06-30] MEDS ORDERED: Estradiol (NF) 0.5 MG TAB PO SCH (09:00)
[2019-06-30] MEDS ORDERED: Ketorolac INJ* 30 MG/ML 1 ML VIAL IV PUSH PRN (09:31)
[2019-06-30] MEDS ORDERED: HYDROcodone/ACETAMIN 5-325 MG* 1 TAB PO PRN ×2 (09:31→13:46)
[2019-06-30] MEDS: ESTRADIOL 1 MG PO SCH (09:34)
[2019-06-30] MEDS: Sertraline* 100 MG TAB PO SCH (09:34)
[2019-06-30] MEDS: Docusate CAP* 100 MG PO SCH ×2 (09:35→20:34)
[2019-06-30] MEDS: Gabapentin CAP(*) 300 MG PO SCH ×3 (09:35→20:34)
[2019-06-30] MEDS: Senna TAB 8.6 mg* TAB PO SCH (09:37)
[2019-06-30] MEDS: Pantoprazole TAB * 40 MG TAB PO SCH (09:37)
[2019-06-30] MEDS: Ondansetron INJ* 2 MG/ML VIAL IV PRN ×2 (11:51→18:24)
[2019-06-30] MEDS ORDERED: Fludrocortisone Acetate TAB* 0.1 MG PO ONE (12:15)
[2019-06-30 12:55] LABS: TSH (Thyroid Stimulating Horm) 2.25 mcIU/mL (0.34-5.60)
[2019-06-30 12:57] LABS: Free T4 0.8 ng/dL (0.61-1.12)
--- NOTE | 2019-06-30 13:53 | PN ---
Subjective Date of Service: 06/30/19 Interval History: Patient c/o nausea and abd pain. She has found that one tab of hydocodone has not sufficiency controlled her pain. She mentions that she has had chronic fatigue and she is unsure if her doctor has checked her for adrenal insufficiency in the past, but tells me she has never been diagnosed with adrenal problems. Denies vomiting, diarrhea, fever/chills, difficulty breathing. Family History: Unchanged from Admission Social History: Unchanged from Admission Past Medical History: Unchanged from Admission Objective Active Medications: Acetaminophen (Tylenol Tab*) 650 mg PO Q6H PRN PRN Reason: PAIN - MILD Hydrocodone Bitart/Acetaminophen ([place] 5-325 Tab*) 1 tab PO Q4H PRN PRN Reason: PAIN - SEVERE Last Admin: 06/30/19 10:04 Dose: 1 tab Hydrocodone Bitart/Acetaminophen ([place] 5-325 Tab*) 2 tab PO Q4H PRN PRN Reason: pain - breakthrough Hydrocodone Bitart/Acetaminophen ([place] 5-325 Tab*) 2 tab PO Q4H PRN PRN Reason: PAIN - SEVERE Al Hydrox/Mg Hydrox/Simethicone (Maalox Plus*) 30 ml PO Q6H PRN PRN Reason: DYSPEPSIA Carisoprodol (Soma Tab*) 350 mg PO TID PRN PRN Reason: PAIN - MODERATE Docusate Sodium (Colace Cap*) 100 mg PO BID [facility] Last Admin: 06/30/19 09:35 Dose: 100 mg Enoxaparin Sodium (Lovenox(*)) 40 mg SUBCUT BEDTIME [facility] Last Admin: 06/29/19 20:43 Dose: 40 mg Estradiol (Estradiol Tab(Nf)) 1 mg PO DAILY [facility] Last Admin: 06/30/19 09:34 Dose: 1 mg Fludrocortisone Acetate (Florinef Tab*) 0.1 mg PO DAILY [facility] Gabapentin (Neurontin Cap(*)) 600 mg PO TID [facility] Hydrocortisone Sodium Succinate (Solu-Cortef*) 50 mg IV Q6H [facility] Last Admin: 06/30/19 09:38 Dose: 50 mg Hydroxyzine HCl (Atarax Tab*) 25 mg PO Q4H PRN PRN Reason: Itching Last Admin: 06/29/19 14:14 Dose: 25 mg Lorazepam (Ativan Tab(*)) 2 mg PO TID PRN PRN Reason: ANXIETY Last Admin: 06/29/19 20:49 Dose: 2 mg Ondansetron HCl (Zofran Inj*) 4 mg IV Q4H PRN PRN Reason: NAUSEA Last Admin: 06/30/19 11:51 Dose: 4 mg Pantoprazole Sodium (Protonix Tab*) 40 mg PO DAILY [facility] Last Admin: 06/30/19 09:37 Dose: 40 mg Polyethylene Glycol/Electrolytes (Miralax*) 17 gm PO 0800,2100 PRN PRN Reason: CONSTIPATION Senna (Senokot 8.6 Mg Tab*) 1 tab PO DAILY [facility] Last Admin: 06/30/19 09:37 Dose: 1 tab Sertraline HCl (Zoloft*) 200 mg PO DAILY [facility] Last Admin: 06/30/19 09:34 Dose: 200 mg Trazodone HCl (Desyrel Tab*) 200 mg PO BEDTIME PRN PRN Reason: INSOMNIA Last Admin: 06/29/19 20:50 Dose: 200 mg Vital Signs - 8 hr 06/30/19 06/30/19 06/30/19 09:03 09:35 10:04 Temperature 98.2 F Pulse Rate 79 Respiratory 16 16 16 Rate Blood Pressure 98/64 (mmHg) O2 Sat by Pulse 94 Oximetry 06/30/19 06/30/19 11:51 12:40 Temperature 98.0 F Pulse Rate 68 Respiratory 18 16 Rate Blood Pressure 96/50 (mmHg) O2 Sat by Pulse 99 Oximetry Oxygen Devices in Use Now: None Appearance: Middle aged, white female, laying upright in bed, appearing comfortable and in NAD Eyes: No Scleral Icterus, - - PERRL Ears/Nose/Mouth/Throat: Mucous Membranes Moist Neck: Trachea Midline Respiratory: Symmetrical Chest Expansion and Respiratory Effort, Clear to Auscultation Cardiovascular: NL Sounds; No Murmurs; No JVD, RRR Abdominal: - - abdomen tender to palp in LUQ, abd otherwise soft and nondistended Extremities: No Edema, No Clubbing, Cyanosis Skin: - - legs appear hyperpigmented Neurological: Alert and Oriented x 3 Result Diagrams: 06/30/19 06:28 06/30/19 06:28 Microbiology and Other Data: Microbiology 06/27/19 22:04 Urine Culture - Final Urine No Growth (<1,000 CFU/mL) Assess/Plan/Problems-Billing Assessment: This is a 49 year old female with a past medical history of chronic pancreatitis , ADD and nephrolithiasis who was admitted on 06/28/18 for abdominal pain. - Patient Problems (1) Adrenal insufficiency Current Visit: Yes Status: Acute Code(s): E27.40 - UNSPECIFIED ADRENOCORTICAL INSUFFICIENCY SNOMED Code(s): 598546993 Comment: -Cortisol level 0.95, nauseated, fatigued, abdominal pain, hypotension -continue hydrocortisone -restarting IVF -starting fludrocortisone -unable to check ACTH as streoids have already been given and ACTH is not stable in blood for >3 hours, so unable to check from prior to steroid administration -checking TSH and prolactin -hypotensive today (2) Abdominal pain Current Visit: No Status: Chronic Priority: Medium Onset Date: 04/06/14 Code(s): R10.9 - UNSPECIFIED ABDOMINAL PAIN SNOMED Code(s): 20266930 Comment: -Chronic abdominal pain at baseline, which is being worked up in [place] -Dr. Quijano consulted. Patient had an extensive work up in March 2019. He recommended an endoscopic ultrasound, which we cannot perform here. Patient already intended to see her GI in [place] for an MRCP in July, recommend she continue with this plan. -has history of chronic pancreatitis -lipase wnl -continue pain control -Renal ultrasound negative -ordering CT/abd pelvis as abdominal pain is not improving (3) Anxiety Current Visit: No Status: Chronic Code(s): F41.9 - ANXIETY DISORDER, UNSPECIFIED SNOMED Code(s): 37327784 Comment: -Continue po lorazepam prn, sertraline, trazodone and atarax as per home regimen. (4) Fibromyalgia Current Visit: No Status: Chronic Code(s): M79.7 - FIBROMYALGIA SNOMED Code(s): 681878444 Comment: -increasing frequency of gabapentin -takes zoloft (5) Status post total hysterectomy Current Visit: Yes Status: Acute Code(s): Z90.710 - ACQUIRED ABSENCE OF BOTH CERVIX AND UTERUS SNOMED Code(s): 083094879 Comment: -continue estrogen replacement (6) Full code status Current Visit: Yes Status: Acute Code(s): Z78.9 - OTHER SPECIFIED HEALTH STATUS SNOMED Code(s): 181026046 (7) DVT prophylaxis Current Visit: No Status: Acute Code(s): Z29.9 - ENCOUNTER FOR PROPHYLACTIC MEASURES, UNSPECIFIED SNOMED Code(s): 806034294 Comment: -lovenox Status and Disposition: Inpatient
[2019-06-30 14:07] LABS: Prolactin 6.2 ng/mL (1.0-25.0)
[2019-06-30] MEDS: LORazepam TAB(*) 1 MG PO PRN ×2 (14:50→20:34)
[2019-06-30] MEDS ORDERED: Iohexol 300* (CONTRAST) 10 ML SDV IV ONE (19:22)
[2019-06-30] MEDS: traZODone TAB* 100 MG PO PRN (20:33)
[2019-06-30] MEDS: Enoxaparin(*) 40 MG/0.4 ML SYR SUBCUT SCH (20:36)
[2019-07-01] MEDS: HYDROcodone/ACETAMIN 5-325 MG* 1 TAB PO PRN ×4 (02:18→15:54)
[2019-07-01] MEDS: Carisoprodol TAB* 350 MG PO PRN ×2 (02:18→12:23)
[2019-07-01] MEDS: Hydrocortisone INJ* 100 MG/2 ML VIAL (in pyxis) IV SCH ×2 (02:19→08:01)
[2019-07-01] MEDS: Senna TAB 8.6 mg* TAB PO SCH (08:00)
[2019-07-01] MEDS: Gabapentin CAP(*) 300 MG PO SCH ×2 (08:00→15:54)
[2019-07-01] MEDS: Docusate CAP* 100 MG PO SCH (08:00)
[2019-07-01] MEDS: Sertraline* 100 MG TAB PO SCH (08:00)
[2019-07-01] MEDS: Pantoprazole TAB * 40 MG TAB PO SCH (08:01)
[2019-07-01] MEDS: LORazepam TAB(*) 1 MG PO PRN (08:01)
[2019-07-01] MEDS: ESTRADIOL 1 MG PO SCH (08:01)
[2019-07-01] MEDS ORDERED: NS 0.9% 1000 ML** 1,000 ML IV ONE (08:21)
[2019-07-01] MEDS ORDERED: Fludrocortisone Acetate TAB* 0.1 MG PO SCH (09:00)
[2019-07-01] MEDS: Ondansetron INJ* 2 MG/ML VIAL IV PRN (11:11)
[2019-07-01] MEDS ORDERED: Ondansetron ODT TAB* 4 MG PO PRN (12:28)
[2019-07-01] MEDS ORDERED: Hydrocortisone TAB* 5 MG PO SCH (14:00)
[2019-07-01 14:12] VITALS: BP 120/70
[2019-07-01] MEDS: hydrOXYzine HCL TAB* 25 MG PO PRN (15:55)
[2019-07-01] MEDS ORDERED: Simethicone TAB* 80 MG TAB.CHEW PO PRN (16:43)
--- NOTE | 2019-07-01 16:55 | CONSULT ---
Consult Consult: July 01, 2019 INPATIENT PAIN CONSULTATION Kinza Nina is a 49 year old female. She takes Soma chronically for fibromyalgia. According to the patient, she developed pancreatitis in 2010 as a result of drinking high-protein shakes frequently. She has had several bouts of pancreatitis since that time. It was largely quiescent for a long period, but in March,, it flared up again. She has been to several hospitals incluing [facility]. She was admitted here in the fall and had a colonoscopy and EGD which did not show inflammatory bowel disease. She was referred for an ERCP to [place] and the ERCP is supposed to happen in July 2019. She has a history of anxiety and ADHD. Late Saturday she developed severe abdomianl pain. She came to the ER and was admitted. She was started on IV Dilaudid. She was having severe abdominal pain and nausea. She was given IV fluids. She has improved but is now on oral [place]. She states it is not working. I am asked to see her in consult PAST MEDICAL HISTORY: ADHD, anxiety, fibromyalgia, nephrolithiasis, recently diagnosed with adrenal insufficiency Allergies Allergy/AdvReac Type Severity Reaction Status Date / Time sumatriptan Allergy Severe See Comment Verified 07/22/18 11:00 diphenhydramine Allergy Intermediate See Comment Verified 07/22/18 11:00 morphine Allergy Itching Verified 07/22/18 11:00 prochlorperazine Allergy Swelling Verified 07/22/18 11:00 Of Face,Lips,& Throat [id number] Antimigraine Allergy See Comment Verified 04/18/19 09:48 Agents ketorolac AdvReac Nausea And Verified 04/18/19 09:49 Vomiting Current Medications Acetaminophen (Tylenol Tab*) 650 mg PO Q6H PRN PRN Reason: PAIN - MILD Hydrocodone Bitart/Acetaminophen ([place] 5-325 Tab*) 1 tab PO Q4H PRN PRN Reason: PAIN - SEVERE Last Admin: 06/30/19 10:04 Dose: 1 tab Hydrocodone Bitart/Acetaminophen ([place] 5-325 Tab*) 2 tab PO Q4H PRN PRN Reason: pain - breakthrough Last Admin: 07/01/19 15:54 Dose: 2 tab Al Hydrox/Mg Hydrox/Simethicone (Maalox Plus*) 30 ml PO Q6H PRN PRN Reason: DYSPEPSIA Carisoprodol (Soma Tab*) 350 mg PO TID PRN PRN Reason: PAIN - MODERATE Last Admin: 07/01/19 12:23 Dose: 350 mg Docusate Sodium (Colace Cap*) 100 mg PO BID [facility] Last Admin: 07/01/19 08:00 Dose: 100 mg Enoxaparin Sodium (Lovenox(*)) 40 mg SUBCUT BEDTIME [facility] Last Admin: 06/30/19 20:36 Dose: 40 mg Estradiol (Estradiol Tab(Nf)) 1 mg PO DAILY [facility] Last Admin: 07/01/19 08:01 Dose: 1 mg Fludrocortisone Acetate (Florinef Tab*) 0.1 mg PO DAILY [facility] Last Admin: 07/01/19 08:00 Dose: 0.1 mg Gabapentin (Neurontin Cap(*)) 600 mg PO TID [facility] Last Admin: 07/01/19 15:54 Dose: 600 mg Hydrocortisone (Cortef Tab*) 5 mg PO 1400 [facility] Last Admin: 07/01/19 16:05 Dose: 5 mg Hydrocortisone (Cortef Tab*) 10 mg PO DAILY [facility] Hydroxyzine HCl (Atarax Tab*) 25 mg PO Q4H PRN PRN Reason: Itching Last Admin: 07/01/19 15:55 Dose: 25 mg Lorazepam (Ativan Tab(*)) 2 mg PO TID PRN PRN Reason: ANXIETY Last Admin: 07/01/19 08:01 Dose: 2 mg Ondansetron HCl (Zofran Inj*) 4 mg IV Q4H PRN PRN Reason: NAUSEA Last Admin: 07/01/19 11:11 Dose: 4 mg Ondansetron HCl (Zofran Odt Tab*) 4 mg PO Q6H PRN PRN Reason: NAUSEA/VOMITING Pantoprazole Sodium (Protonix Tab*) 40 mg PO DAILY [facility] Last Admin: 07/01/19 08:01 Dose: 40 mg Polyethylene Glycol/Electrolytes (Miralax*) 17 gm PO 0800,2100 PRN PRN Reason: CONSTIPATION Senna (Senokot 8.6 Mg Tab*) 1 tab PO DAILY [facility] Last Admin: 07/01/19 08:00 Dose: 1 tab Sertraline HCl (Zoloft*) 200 mg PO DAILY [facility] Last Admin: 07/01/19 08:00 Dose: 200 mg Simethicone (Mylicon Tab*) 80 mg PO Q6H PRN PRN Reason: abdominal pain Last Admin: 07/01/19 17:03 Dose: 80 mg Trazodone HCl (Desyrel Tab*) 200 mg PO BEDTIME PRN PRN Reason: INSOMNIA Last Admin: 06/30/19 20:33 Dose: 200 mg SOCIAL HISTORY: Non smoker, non drinker. Lives with (she says she is from him, but they live together) in [place]. 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 Sensation intact. Able to move 4 extremities ASSESSMENT: 1. Chronic Pancreatitis 2. Chronic Abdominal Pain PLAN: Her ORT is 3 (at least) but she seems to have real pain. I had suggested a Fentanyl patch but the patient was very, very resistant to this. I suggested oxycodone, but this gives her a headache, and Morphine makes her vomit. She refused to consider Methadone and is on [place] and does not think it is helping. I recommend she try oral Dilaudid 4 mg tablets 1 PO q4, MDD=5 and give enough to get to Saturday. . She can follow up with me in the Pain Clinic if she desires
--- NOTE | 2019-07-02 05:03 | DS ---
ADDENDUM: NOTE: The patient's initial prescription for hydromorphone was in error sent 4 mg po q 4 hours and prn for severe pain with incident was accidently left off the label. She had already picked it up from the pharmacy by the time this error was noted. I did call the patient directly and spoke with her directly, and noted that, as we had previously discussed, the medication was only as needed for severe pain every 4 hours and was not scheduled every 4 hours. The patient expressed understanding of this. BEL HADDAD [id number]/[facility] #: [id number] INES
--- NOTE | 2019-07-02 05:39 | DS ---
ADDENDUM NOW INCLUDED ON THIS REPORT CC: BEL Seals; Dr. Devi * DISCHARGE SUMMARY: DATE OF ADMISSION: DATE OF DISCHARGE: 07/01/19 PROVIDER: BEL Manzano ATTENDING PHYSICIAN WHILE IN THE HOSPITAL: Carlo Samuel MD * (dictated by BEL Manzano) PRIMARY CARE PROVIDER: BEL Seals CONSULTING PAIN SPECIALIST: Dr. Devi. CONSULTING PRIMARY TEACHER: Dr. Quijano PRIMARY DIAGNOSES: 1. [id number] abdominal pain most likely related to her chronic pancreatitis though still with workup in Gastroenterology in [place]. 2. Possible adrenal insufficiency. SECONDARY DIAGNOSES: 1. Anxiety, on chronic benzodiazepines. 2. Chronic nephrolithiasis. 3. Fibromyalgia. 4. Attention deficit disorder, on chronic stimulants. 5. Hormone replacement related to status post total hysterectomy. 6. Chronic pancreatitis with chronic abdominal pain. PERTINENT STUDIES/LAB DATA: Renal ultrasound on 06/28/19, impression: Both kidneys appear within normal limits. CT abdomen pelvis on 06/30/19, impression: There are small bilateral pleural effusions and associated dependent atelectasis. There appears to be mild free fluid or ascites in the abdomen and pelvis. There may be mild wall thickening and fat stranding involving the proximal colon including the cecum, ascending colon, cannot exclude mild nonspecific proximal colitis. White blood cell count on date of admission 6.7, total bili 0.2, AST 20, ALT 19 , alk phos 50. TSH from 06/28/19 2.25 with T4 from 06/28/19 0.8, cortisol on time 04:54 result is 0.95. Prolactin on 06/30/19 6.2. HISTORY OF PRESENT ILLNESS/HOSPITAL COURSE: Kinza Nina is a 49-year-old white female with past medical history significant for anxiety on chronic benzodiazepines, chronic abdominal pain, ADD, on stimulants, and presumed chronic pancreatitis, who presented to the emergency department due to abdominal pain on 06/28/19 with associated nausea. For further details regarding her history, please see history and physical written by Dr. Kiley Keller. She was being given Dilaudid for the pain control initially and she did develop significant hypotension. Her cortisol level was checked in the morning , which was found to be quite low at 0.95 and she was started on hydrocortisone. Unfortunately, an ACTH stimulation test and prolactin level were not checked at that time and they were unable to be checked later in her hospitalization after therapy as the lab was unable to perform these tesons on blood collected over 24 hours prior for these studies. And these tests would not be helpful in the setting of the patient already receiving hydrocortisone. Due to the possible diagnosis of adrenal insufficiency, she was also started on Florinef. To me, the severely low cortisol is evidence of adrenal insufficiency , however, her significant hypotension could be related to the Dilaudid use though perhaps also due to the adrenal insufficiency. Additionally, this could not be confirmed in the absence of an ACTH stimulation test. I did thoroughly educate the patient on the fact that this diagnosis is tentative and we did discuss the various types of adrenal insufficiency. The patient was switched to oral pain medication. She was complaining the pain control was not improving. We discussed alternate changes and we increased her gabapentin and she was still not feeling good relief. She is requesting stronger medications and I told her this was not appropriate. She did discuss this further with the pain specialist Dr. Devi in consultation, and during her conversation with Dr. Devi, she said she did not want stronger pain medication. This was contradictory. By date of discharge, she was able to maintain p.o. intake of fluids and food. Her abdominal imaging showed no concerning findings related to her abdominal pain. She was not vomiting. She had normal lab work and her blood pressure was quite stable and her most recent blood pressure was 120/70. She describes symptoms of fatigue and some body aches and no feelings of fevers, chills, chest pain, difficulty breathing, change in bowel movements or dysuria. She was seen in consultation by Dr. Quijano, who had no further recommendations during her hospitalization. We did discuss that if she indeed does have adrenal insufficiency, then it could take some time for her fatigue to improve. PHYSICAL EXAM ON THE DAY OF DISCHARGE: General: Well-developed, well- nourished female, lying on hospital bed, appearing comfortable, in no acute distress. Eyes: PERRL. Sclerae anicteric. Cardio: Regular rhythm without murmurs or gallops. Lungs: Symmetrical respirations. Abdomen: Normoactive bowel sounds x4 quadrants. Minimally distended abdomen, though overall soft, tender to palpation in the left upper quadrant. No guarding, no rigidity. Negative drawer sign. Extremities: No clubbing, cyanosis, or edema. Neuro: Alert, oriented x3. No focal deficits and able to move all 4 extremities. Skin was warm, dry, and intact. DISCHARGE PLAN: Diet: Regular unrestricted diet. The patient was advised to eat very small meals throughout the day to limit abdominal pain or try to use Ensure or Boost for nutrition if experiencing continued abdominal discomfort. Activity: The patient may return to normal activities as tolerated. DISCHARGE INSTRUCTIONS: The patient was ultimately agreeable to utilizing oral hydromorphone. We did heavily discuss that this is supposed to be used as medication only for severe pain when other medications such as her gabapentin, Soma, Tylenol or even simethicone are not improving the pain. She was advised to call the pain clinic if this is not helpful and either way she should be calling the pain clinic on 07/06/19 for further followup. She was advised to follow up with her primary care provider within a week to 10 days to ensure that she is having some improvement. She should have followup with Dr. Godoy with Endocrinology to further evaluate if this is true adrenal insufficiency. Additionally, she should follow up as scheduled with her patient resource specialist in [place] for further workup to evaluate her abdominal pain. I did advise the patient to not use the hydromorphone in combination with Ativan due to risk of respiratory distress. DISCHARGE MEDICATIONS: 1. Hydromorphone 4 mg p.o. q.4 hours p.r.n., severe pain, maximum daily dose 5 tabs (30 tab supply provided). 2. Hydrocortisone 10 mg p.o. q.a.m. 3. Hydrocortisone 5 mg p.o. at 1400. 4. Fludrocortisone 0.1 mg p.o. daily. 5. Zofran 4 mg p.o. q.6 hours p.r.n. nausea, vomiting. 6. Simethicone 80 mg p.o. q.4 hours p.r.n. pain. Continued home medications: 1. Acetaminophen liquid 650 mg p.o. q.6 hours p.r.n. pain. 2. Soma 350 mg p.o. t.i.d. p.r.n. pain. 3. Colace 100 mg p.o. b.i.d. 4. Estradiol 1 mg p.o. daily. 5. Ferrous sulfate 325 mg p.o. daily. 6. Gabapentin 600 mg p.o. b.i.d. 7. Ativan 2 mg p.o. t.i.d. p.r.n. anxiety, maximum daily dose 40 mg. 8. Omeprazole 20 mg p.o. daily. 9. MiraLAX 17 g p.o. 1800, 2100 p.r.n. constipation. 10. Progesterone 200 mg p.o. at bedtime. 11. Senna 1 tab p.o. daily. 12. Zoloft 200 mg p.o. daily. 13. Trazodone 20 mg p.o. at bedtime. CONDITION ON DISCHARGE: Stable. DISPOSITION: Home. TIME SPENT: Approximately 45 minutes was spent on this discharge, approximately half that time was spent at bedside evaluating the patient and discussing the plan of care and discussing the further risk of staying in the hospital longer in the setting of her improvement. BEL MANZANO ADDENDUM: NOTE: The patient's initial prescription for hydromorphone was, in error, sent as 4 mg po q 4 hours; meaning the "prn for severe pain" was accidently left off the label. She had already picked it up from the pharmacy by the time this error was noted. I did call the patient directly and spoke with her directly. I told her, as we had previously discussed, the medication was only as needed for severe pain every 4 hours and was not scheduled every 4 hours. The patient expressed understanding of this. BEL MANZANO [id number]/[facility] #: [id number]/[facility] #: [id number] INES
[2019-07-02] MEDS ORDERED: Hydrocortisone TAB* 10 MG PO SCH (09:00)
== END 2019-07-01 18:05 | disposition home or self-care (01) | DRG 282 ==
LOC: ED 20:05 → MED 06-28 00:11 → OBSVTOIN 06-30 11:00
PROVIDERS: ADMIT Internal Medicine; ATTEND Internal Medicine
DX: K86.1 Other chronic pancreatitis (principal); E27.40 Unspecified adrenocortical insufficiency; I27.20 Pulmonary hypertension, unspecified; I34.0 Nonrheumatic mitral (valve) insufficiency; K58.9 Irritable bowel syndrome, unspecified; M19.90 Unspecified osteoarthritis, unspecified site; M81.0 Age-related osteoporosis without current pathological fracture; M79.7 Fibromyalgia; G43.909 Migraine, unspecified, not intractable, without status migrainosus; F41.9 Anxiety disorder, unspecified; F32.9 Major depressive disorder, single episode, unspecified; G89.4 Chronic pain syndrome; F90.9 Attention-deficit hyperactivity disorder, unspecified type; N20.0 Calculus of kidney; I95.2 Hypotension due to drugs; T40.2X5A Adverse effect of other opioids, initial encounter; Y92.239 Unspecified place in hospital as the place of occurrence of the external cause; Z79.890 Hormone replacement therapy; Z87.440 Personal history of urinary (tract) infections; Z88.6 Allergy status to analgesic agent; Z80.3 Family history of malignant neoplasm of breast; Z88.5 Allergy status to narcotic agent; Z88.8 Allergy status to other drugs, medicaments and biological substances; Z79.52 Long term (current) use of systemic steroids; Z90.710 Acquired absence of both cervix and uterus
CPT/HCPCS: 36415; 74177; 76775; 80048; 80053; 81003; 81015; 82533; 83605; 83690; 84146; 84439; 84443; 85025; 85060; 86140; 87086; 96374; 96375; 99283; A9270-GY; G0378; J1170; J1200; J1650; J1720; J2405; Q9967

== ENCOUNTER 2019-07-03 17:03 | Emergency (ER) | payer BC, MEDICARE ==
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
[2019-07-03] MEDS ORDERED: Dicyclomine CAP* 10 MG PO ONE (17:55)
[2019-07-03] MEDS ORDERED: Famotidine IV* 10 MG/ML 2 ML (20 mg) IV SLOW PU ONE (17:55)
[2019-07-03] MEDS ORDERED: Ondansetron INJ* 2 MG/ML VIAL IV ONE (18:12)
[2019-07-03 18:18] LABS: ABS Basophils 0.1 10^3/ul (0-0.2); ABS Eosinophils 0.1 10^3/ul (0-0.6); ABS Lymphocytes 1.3 10^3/ul (1.0-4.8); ABS Monocytes 0.6 10^3/ul (0-0.8); ABS Neutrophils 4.8 10^3/ul (1.5-7.7); Eosinophil % 1.9 %; Hematocrit 30 % (35-47); Hemoglobin 10.6 g/dL (12.0-16.0); Lymphocyte % 19.1 %; Mean Corpuscular HGB Conc 36 g/dL (31-36); Mean Corpuscular Hemoglobin 32 pg (27-31); Mean Corpuscular Volume 90 fL (80-97); Nucleated Red Blood Cells % 0.1; Platelet Count 267 10^3/uL (150-450); Red Blood Count 3.32 10^6 /uL (3.70-4.87); Red Cell Distribution Width 13 % (10-15); White Blood Count 6.9 10^3/uL (3.5-10.8)
[2019-07-03 18:35] LABS: ALT 32 U/L (7-52); AST 26 U/L (13-39); Albumin 3.3 g/dL (3.2-5.2); Albumin/Globulin Ratio 1.4 (1-3); Alkaline Phosphatase 51 U/L (34-104); Anion Gap 4 mmol/L (2-11); BUN/Creatinine Ratio 21.4 (8-20); Blood Urea Nitrogen 15 mg/dL (6-24); C Reactive Protein < 1.00 mg/L (<8.01); CO2 Carbon Dioxide 30 mmol/L (22-32); Calcium 8.2 mg/dL (8.6-10.3); Chloride 106 mmol/L (101-111); EGFR African American 106.7 (>60); EGFR Non-African American 88.2 (>60); Globulin 2.3 g/dL (2-4); Glucose 99 mg/dL (70-100); Potassium 3.8 mmol/L (3.5-5.0); Sodium 140 mmol/L (135-145); Total Protein 5.6 g/dL (6.4-8.9)
[2019-07-03 20:15] VITALS: BP 152/93
== END 2019-07-03 19:58 | disposition home or self-care (01) ==
LOC: ED 17:03
DX: R10.13 Epigastric pain (principal); R11.10 Vomiting, unspecified; J90 Pleural effusion, not elsewhere classified; F41.9 Anxiety disorder, unspecified; F43.10 Post-traumatic stress disorder, unspecified; F32.9 Major depressive disorder, single episode, unspecified; Z87.442 Personal history of urinary calculi; Z90.710 Acquired absence of both cervix and uterus; Z90.89 Acquired absence of other organs; Z90.49 Acquired absence of other specified parts of digestive tract; Z88.5 Allergy status to narcotic agent; Z88.6 Allergy status to analgesic agent; Z88.8 Allergy status to other drugs, medicaments and biological substances
CPT/HCPCS: 36415; 71046; 80053; 83690; 84484; 85025; 86140; 93005; 96374; 96375; 99284; A9270-GY; J2405

== ENCOUNTER 2019-10-14 15:57 | Emergency (ER) | payer BC, MEDICARE ==
[2019-10-14] MEDS ORDERED: Famotidine IV 10 MG/ML 2 ml VIAL (20 mg) IV SLOW PU ONE (16:14)
[2019-10-14] MEDS ORDERED: Lorazepam PYXIS KEY PRN (16:15)
[2019-10-14] MEDS ORDERED: LORazepam 2 mg VIAL 1 ml IV PUSH ONE (16:15)
[2019-10-14] MEDS ORDERED: Ondansetron 4 mg VIAL 2 MG/ML 2 ml VIAL IV ONE (16:15)
[2019-10-14] MEDS ORDERED: NS 0.9% 1000 ml BAG 1,000 ML IV ONE (16:16)
[2019-10-14] MEDS ORDERED: Lorazepam PYXIS KEY ONE (16:25)
[2019-10-14 17:39] LABS: ABS Lymphocytes 1.1 10^3/ul (1.0-4.8); ABS Monocytes 0.3 10^3/ul (0-0.8); Eosinophil % 0.1 %; Hematocrit 35 % (35-47); Hemoglobin 12.5 g/dL (12.0-16.0); Mean Corpuscular HGB Conc 35 g/dL (31-36); Mean Corpuscular Hemoglobin 32 pg (27-31); Mean Corpuscular Volume 91 fL (80-97); Mean Platelet Volume 7.1 fL (7.4-10.4); Platelet Count 316 10^3/uL (150-450); Red Cell Distribution Width 13 % (10-15); White Blood Count 9.5 10^3/uL (3.5-10.8)
[2019-10-14 17:58] LABS: Albumin 3.7 g/dL (3.2-5.2); Anion Gap 9 mmol/L (2-11); CO2 Carbon Dioxide 21 mmol/L (22-32); Calcium 8.4 mg/dL (8.6-10.3); Chloride 107 mmol/L (101-111); Potassium 3.5 mmol/L (3.5-5.0); Sodium 137 mmol/L (135-145)
[2019-10-14] MEDS ORDERED: diPHENhydraMINE IV 50 MG/ML 1 ml VIAL (BENADRYL) IV ONE (17:59)
[2019-10-14] MEDS ORDERED: HYDROmorphone 0.5 MG/0.5 ML SYRINGE IV ONE (18:00)
[2019-10-14 18:04] LABS: ALT 15 U/L (7-52); AST 28 U/L (13-39); Albumin/Globulin Ratio 1.4 (1-3); Alkaline Phosphatase 42 U/L (34-104); Blood Urea Nitrogen 17 mg/dL (6-24); C Reactive Protein < 1.00 mg/L (<8.01); EGFR African American 100.1 (>60); EGFR Non-African American 82.7 (>60); Globulin 2.7 g/dL (2-4); Glucose 98 mg/dL (70-100); Total Protein 6.4 g/dL (6.4-8.9)
[2019-10-14] MEDS ORDERED: Iohexol 300 (CONTRAST) 10 ML SDV IV ONE (18:19)
[2019-10-14 20:21] LABS: Urine Appearance Cloudy; Urine Bilirubin Negative (Negative); Urine Blood Negative (Negative); Urine Color Yellow; Urine Glucose Negative (Negative); Urine Ketones Negative (Negative); Urine Nitrite Negative (Negative); Urine Protein Negative (Negative); Urine Urobilinogen Negative (Negative)
[2019-10-14 20:48] VITALS: BP 123/79
== END 2019-10-14 21:02 | disposition home or self-care (01) ==
LOC: ED 15:57

== ENCOUNTER 2023-05-05 12:29 | Inpatient (IN) ==
[2023-05-05] MEDS ORDERED: Lactated Ringers 1000 ml BAG 1,000 ML IV ONE ×2 (12:42→18:18)
[2023-05-05] MEDS ORDERED: Ondansetron 4 mg VIAL 2 MG/ML 2 ml VIAL IV ONE (12:44)
[2023-05-05] MEDS ORDERED: fentaNYL 100 mcg/2 ml 50 MCG/ML VIAL IV SLOW PU ONE ×2 (12:44→18:18)
[2023-05-05 14:13] LABS: ABS Eosinophils 0.1 10^3/uL (0.0-0.5); ABS Lymphocytes 1.6 10^3/uL (1.0-4.8); ABS Monocytes 0.4 10^3/uL (0.0-0.9); ABS Neutrophils 5.2 10^3/uL (1.5-7.6); Eosinophil % 1.6 %; Hematocrit 39.1 % (35-45); Hemoglobin 13.2 g/dL (11.5-14.3); Lymphocyte % 22.1 %; Mean Corpuscular Hemoglobin 31.7 pg (27-33); Mean Corpuscular Hgb Conc 33.9 g/dL (31-36); Mean Corpuscular Volume 93.6 fL (80-97); Mean Platelet Volume 6.8 fL (7.5-11.2); Platelet Count 308 10^3/uL (150-450); Red Blood Count 4.17 10^6/uL (3.63-4.92); Red Cell Distribution Width 13.4 % (12-17); White Blood Count 7.3 10^3/uL (3.8-11.8)
[2023-05-05 14:30] LABS: Albumin 4.1 g/dL (3.2-5.2); Albumin/Globulin Ratio 1.6 (1-3); Calcium 8.6 mg/dL (8.6-10.3); Creatinine, Serum 0.76 mg/dL (0.51-0.95); Globulin 2.5 g/dL (2-4); Total Bilirubin 0.3 mg/dL (0.2-1.0); Total Protein 6.6 g/dL (6.4-8.9); eGFR CKD-EPI 92.5 (>60)
[2023-05-05] MEDS ORDERED: Iohexol 350 (CONTRAST) 500 ML MDV IV ONE (14:38)
[2023-05-05 18:34] LABS: Urine Appearance Turbid; Urine Bilirubin Negative (Negative); Urine Blood Negative (Negative); Urine Color Yellow; Urine Glucose Negative (Negative); Urine Ketones Negative (Negative); Urine Nitrite Negative (Negative); Urine Protein Negative (Negative); Urine Specific Gravity 1.021 (1.002-1.030); Urine Urobilinogen Negative (Negative)
[2023-05-05] MEDS ORDERED: HYDROmorphone 0.5 MG/0.5 ML SYRINGE IV ONE (22:32)
[2023-05-05] MEDS ORDERED: Ondansetron 4 mg VIAL 2 MG/ML 2 ml VIAL IV PRN (22:32)
[2023-05-05] MEDS ORDERED: HYDROmorphone 0.5 MG/0.5 ML SYRINGE IV PRN (22:39)
[2023-05-05] MEDS ORDERED: Ondansetron 4 mg VIAL 2 MG/ML 2 ml VIAL ONE (22:40)
[2023-05-06] MEDS: NS 0.9% 1000 ml BAG 1,000 ML IV SCH ×3 (01:05→23:50)
[2023-05-06 05:04] LABS: ABS Eosinophils 0.1 10^3/uL (0.0-0.5); ABS Lymphocytes 1.7 10^3/uL (1.0-4.8); ABS Monocytes 0.4 10^3/uL (0.0-0.9); ABS Neutrophils 3.4 10^3/uL (1.5-7.6); Eosinophil % 2.6 %; Hematocrit 34.4 % (35-45); Hemoglobin 11.7 g/dL (11.5-14.3); Lymphocyte % 29.3 %; Mean Corpuscular Hemoglobin 31.9 pg (27-33); Mean Corpuscular Hgb Conc 34.1 g/dL (31-36); Mean Corpuscular Volume 93.5 fL (80-97); Platelet Count 276 10^3/uL (150-450); Red Blood Count 3.68 10^6/uL (3.63-4.92); Red Cell Distribution Width 13.2 % (12-17); White Blood Count 5.7 10^3/uL (3.8-11.8)
[2023-05-06 05:27] LABS: Calcium 7.8 mg/dL (8.6-10.3); Creatinine, Serum 0.75 mg/dL (0.51-0.95); Potassium 3.9 mmol/L (3.5-5.0)
[2023-05-06] MEDS ORDERED: LORAZEPAM 2 MG PO SCH (09:00)
[2023-05-06] MEDS: HYDROmorphone 0.5 MG/0.5 ML SYRINGE IV PRN ×4 (09:34→23:40)
[2023-05-06] MEDS: Ondansetron 4 mg VIAL 2 MG/ML 2 ml VIAL IV PRN ×2 (10:36→23:39)
[2023-05-06] MEDS ORDERED: Lorazepam PYXIS KEY PRN (17:35)
[2023-05-06] MEDS ORDERED: Polyethylene Glycol 3350 17 GM PACKET PO PRN (18:24)
[2023-05-06] MEDS: LORazepam 2 mg VIAL 1 ml IV PUSH SCH (21:08)
[2023-05-06] MEDS: Acetaminophen IV 1 GM/100ML 1,000 MG/100 ML BAG IV PRN (21:11)
[2023-05-07] MEDS: Acetaminophen IV 1 GM/100ML 1,000 MG/100 ML BAG IV PRN ×3 (03:57→21:10)
[2023-05-07] MEDS: HYDROmorphone 0.5 MG/0.5 ML SYRINGE IV PRN ×3 (05:28→14:03)
[2023-05-07 06:30] LABS: ABS Eosinophils 0.2 10^3/uL (0.0-0.5); ABS Lymphocytes 2.3 10^3/uL (1.0-4.8); ABS Monocytes 0.4 10^3/uL (0.0-0.9); ABS Neutrophils 3.3 10^3/uL (1.5-7.6); Eosinophil % 2.5 %; Hematocrit 38.6 % (35-45); Lymphocyte % 37.2 %; Mean Corpuscular Hemoglobin 31.7 pg (27-33); Mean Corpuscular Hgb Conc 33.8 g/dL (31-36); Mean Corpuscular Volume 93.7 fL (80-97); Nucleated Red Blood Cells % 0.1 %/100WBC (0.0-0.8); Platelet Count 292 10^3/uL (150-450); Red Blood Count 4.12 10^6/uL (3.63-4.92); White Blood Count 6.1 10^3/uL (3.8-11.8)
[2023-05-07 06:40] LABS: Calcium 8.3 mg/dL (8.6-10.3); Creatinine, Serum 0.65 mg/dL (0.51-0.95); Magnesium 2.1 mg/dL (1.9-2.7); Potassium 4.5 mmol/L (3.5-5.0); eGFR CKD-EPI 103.9 (>60)
[2023-05-07] MEDS ORDERED: Glucose ORAL 15 GM TUBE PO ONE (08:33)
[2023-05-07] MEDS: Ondansetron 4 mg VIAL 2 MG/ML 2 ml VIAL IV PRN ×2 (11:00→18:39)
[2023-05-07] MEDS: D5W 1/2 NS 1000 ml BAG 1,000 ML IV SCH (16:40)
[2023-05-07] MEDS: HYDROmorphone 1 MG/1 ML SYRINGE IV PRN (18:33)
[2023-05-07] MEDS: LORazepam 2 mg VIAL 1 ml IV PUSH SCH (21:04)
[2023-05-07] MEDS ORDERED: Lidocaine 1% MPF 5 ML VIAL INJ ONE (23:49)
[2023-05-08] MEDS: Acetaminophen IV 1 GM/100ML 1,000 MG/100 ML BAG IV PRN (03:46)
[2023-05-08] MEDS: HYDROmorphone 1 MG/1 ML SYRINGE IV PRN ×5 (06:09→21:38)
[2023-05-08] MEDS: D5W 1/2 NS 1000 ml BAG 1,000 ML IV SCH ×2 (08:37→22:58)
[2023-05-08] MEDS ORDERED: Lidocaine 1% MPF 5 ML VIAL INJ ONE (11:21)
[2023-05-08 11:43] LABS: ABS Eosinophils 0.2 10^3/uL (0.0-0.5); ABS Lymphocytes 1.3 10^3/uL (1.0-4.8); ABS Monocytes 0.4 10^3/uL (0.0-0.9); ABS Neutrophils 2.7 10^3/uL (1.5-7.6); Eosinophil % 3.9 %; Hematocrit 37.6 % (35-45); Hemoglobin 12.9 g/dL (11.5-14.3); Lymphocyte % 29.2 %; Mean Corpuscular Hemoglobin 32.2 pg (27-33); Mean Corpuscular Hgb Conc 34.2 g/dL (31-36); Mean Corpuscular Volume 94.1 fL (80-97); Mean Platelet Volume 7.2 fL (7.5-11.2); Nucleated Red Blood Cells % 0.1 %/100WBC (0.0-0.8); Platelet Count 287 10^3/uL (150-450); Red Blood Count 3.99 10^6/uL (3.63-4.92); Red Cell Distribution Width 12.8 % (12-17); White Blood Count 4.6 10^3/uL (3.8-11.8)
[2023-05-08 12:50] LABS: Anion Gap 5 mmol/L (2-16); Blood Urea Nitrogen 10 mg/dL (6-24); CO2 Carbon Dioxide 22 mmol/L (22-32); Calcium 8.3 mg/dL (8.6-10.3); Chloride 107 mmol/L (101-111); Creatinine, Serum 0.85 mg/dL (0.51-0.95); Glucose 83 mg/dL (70-100); Sodium 134 mmol/L (135-145); eGFR CKD-EPI 80.9 (>60)
[2023-05-08] MEDS ORDERED: Propofol 10 MG/ML 20 ML BTL ONE (14:51)
[2023-05-08] MEDS ORDERED: Lidocaine 2% PF 5 ML VIAL ONE (15:04)
[2023-05-08] MEDS ORDERED: fentaNYL 100 mcg/2 ml 50 MCG/ML VIAL ONE (15:35)
[2023-05-08] MEDS ORDERED: Sodium Phosphate ADULT ENEMA 133 ML BTL PR ONE (16:00)
[2023-05-08] MEDS ORDERED: PEG 3000 GI LAVAGE 1 GALLON PO ONE (16:21)
[2023-05-08] MEDS ORDERED: HYDROmorphone 0.5 MG/0.5 ML SYRINGE IV PRN (16:22)
[2023-05-08] MEDS: CMC:Estradiol 1 mg TAB (NF) PO SCH (17:16)
[2023-05-08] MEDS ORDERED: Senna TAB 8.6 mg TAB PO PRN (17:40)
[2023-05-08] MEDS ORDERED: Magnesium Hydroxide LIQ 30 ML UDC PO PRN (17:40)
[2023-05-08] MEDS: Magnesium Hydroxide LIQ 30 ML UDC PO SCH (21:36)
[2023-05-08] MEDS: LORazepam 2 mg VIAL 1 ml IV PUSH SCH (23:07)
[2023-05-09] MEDS: HYDROmorphone 1 MG/1 ML SYRINGE IV PRN ×2 (05:49→10:02)
[2023-05-09 05:55] LABS: ABS Basophils 0.1 10^3/uL (0.0-0.1); ABS Eosinophils 0.2 10^3/uL (0.0-0.5); ABS Lymphocytes 1.7 10^3/uL (1.0-4.8); ABS Monocytes 0.4 10^3/uL (0.0-0.9); ABS Neutrophils 3.3 10^3/uL (1.5-7.6); ABS Nucleated RBC 0.01 10^3/ul; Eosinophil % 3.2 %; Hematocrit 35.7 % (35-45); Hemoglobin 12.2 g/dL (11.5-14.3); Lymphocyte % 30.4 %; Mean Corpuscular Hemoglobin 31.9 pg (27-33); Mean Corpuscular Hgb Conc 34.3 g/dL (31-36); Mean Platelet Volume 6.8 fL (7.5-11.2); Nucleated Red Blood Cells % 0.1 %/100WBC (0.0-0.8); Platelet Count 307 10^3/uL (150-450); Red Blood Count 3.84 10^6/uL (3.63-4.92); White Blood Count 5.7 10^3/uL (3.8-11.8)
[2023-05-09 06:15] LABS: Calcium 8.2 mg/dL (8.6-10.3); Creatinine, Serum 0.85 mg/dL (0.51-0.95); Potassium 3.6 mmol/L (3.5-5.0); eGFR CKD-EPI 80.9 (>60)
[2023-05-09] MEDS: Acetaminophen IV 1 GM/100ML 1,000 MG/100 ML BAG IV PRN (07:33)
[2023-05-09] MEDS: CMC:Estradiol 1 mg TAB (NF) PO SCH (08:51)
[2023-05-09] MEDS: Magnesium Hydroxide LIQ 30 ML UDC PO SCH (08:51)
[2023-05-09] MEDS: D5W 1/2 NS 1000 ml BAG 1,000 ML IV SCH (09:59)
[2023-05-09] MEDS ORDERED: HYDROcodone/ACETAMIN 5/325 mg TAB PO PRN (13:48)
[2023-05-09 13:49] VITALS: BP 93/63
== END 2023-05-09 18:15 | disposition home or self-care (01) | DRG 247 ==
LOC: ED 12:29 → EDHOLD 12:29 → SUATTDRO 21:18 → SSU 05-06 11:17 → SUATTDRO 05-08 14:13
PROVIDERS: ADMIT Internal Medicine; ATTEND Hospitalist